=== PATIENT | male | born 1945 | race Caucasian/White ===

== ENCOUNTER 2021-06-12 21:39 | Inpatient (IN) | payer MEDICARE ==
[~2021-06-12] VITALS: Ht 198.1 cm; Wt 91.2 kg
--- NOTE | 2021-06-12 22:04 | PHYS DOC ---
Past Medical History Additional Past Medical Histor: POOR HISTORIAN Past Surgical History: Other Additional Past Surgical Histo: LEFT SHOULDER, POOR HISTORIAN General Adult EDM: Chief Complaint: MECHANICAL FALL HPI: HPI: 75 yr old M PMH seizure disorder and suspected to be on anticoagulants, ÁNGEL (hx from ems) presents to the ED with no active complaints, EMS reports patient slipped and fell in the shower and hit his head. Patient is not sure how 911 was called. Patient is oriented to month and self, very poor historian. History is limited due to patient's recall, suspect medical condition. Review of Systems: Review of Systems: Review of systems limited due to patient's recall, suspect medical condition. Heart Score: C/O Chest Pain: No Risk Factors: Risk Factors: DM, Current or recent (<one month) smoker, HTN, HLP, family history of CAD, obesity. Risk Scores: Score 0 - 3: 2.5% MACE over next 6 weeks - Discharge Home Score 4 - 6: 20.3% MACE over next 6 weeks - Admit for Clinical Observation Score 7 - 10: 72.7% MACE over next 6 weeks - Early Invasive Strategies Physical Exam: PE: Constitutional: well nourished, no acute distress, HENT: Large 5 x 5 cm hematoma over right parietal school just slightly over right upper forehead with laceration, no hemotympanum, moist mucous membranes with no oral bleeding Eyes: PERRLA, EOMI, conjunctiva normal, no discharge, no raccoon eyes or septal hematoma Neck: Normal range of motion, supple, in c-collar Cardiovascular: S1/2 present, regular rhythm Lungs & Thorax: Speaking in full sentences, bilateral equal chest rise, no tachypnea or increased work of breathing, scar over her left anterior shoulder and right shoulder-patient unsure why Abdomen: soft, no tenderness, no hip tenderness Skin: Warm, dry, Back: No midline spinal step-offs or tenderness, no CVA tenderness. [] Extremities: No tenderness, no cyanosis, no lower extremity edema, moving all 4 extremities Neurologic: Alert, [id number] = GCS14, requires ortho assistant with RN to stand Psychologic: Calm mood, normal affect : Yellow urine EKG: EKG: Sinus rhythm at 70 bpm, left axis deviation, QRS 170, QTC 507, peaked T waves V2 through V4, no obvious elevations or ST depressions, no active chest pain Radiology/Procedures: Radiology/Procedures: IMAGING REPORT Signed PATIENT: WALT MORROW ACCOUNT: [id number] : 1945 LOCATION: ER AGE: 75 SEX: M EXAM STATUS: PRE ER ORD. PHYSICIAN: JEAN GONZALEZ DO REASON: fall/confused/trauma PROCEDURE: CT HEAD AND CERVICAL SPINE WO Exam: CT head, maxillofacial and cervical spine INDICATION: Fall, confused trauma TECHNIQUE: Sequential axial images through the head, face and cervical spine were obtained without the administration of IV contrast. Exposure: One or more of the following in the visualized dose reduction techniques were utilized for this examination: 1. Automated exposure control 2. Adjustment of the MA and/or KV according to patient size 3. Use of iterative of reconstructive technique Comparisons: None FINDINGS: Head: No focal parenchymal lesion or hemorrhage is identified. There is no midline shift or sulcal effacement. No acute vascular territory infarction is identified. Hooks-white distinction is preserved. The ventricular system is within normal limits without compression hydrocephalus. The basal cisterns are well maintained. Face: Extra cranial soft tissue scalp contusion/hematoma overlying the right frontoparietal region. The visualized portions of the paranasal sinuses and mastoid air cells are well-pneumatized. No acute fractures. Globes intradural contents are normal. Cervical spine: Straightening of cervical spine which may positional. Vertebral body heights are well-maintained. Fracture to the cervical spine is not identified. Multilevel spondylotic change in cervical spine with degenerative disease greatest at C5-C6. Mild bilateral facet arthropathy is noted in cervical spine. Visualized paraspinal soft tissues are unremarkable. IMPRESSION: 1. No acute intracranial abnormality. 2. Extra cranial soft tissue scalp contusion/hematoma overlying the right frontoparietal region. No underlying osseous abnormality. 3. Negative CT C-spine for acute traumatic injury. Electronically signed by: Casie Avina MD (06/12/2021 11:14 PM) [facility] DICTATED and SIGNED BY: CASIE AVINA MD DATE: 06/12/21 [id number] IMAGING REPORT Signed PATIENT: WALT MORROW ACCOUNT: [id number] : 1945 LOCATION: ER AGE: 75 SEX: M EXAM STATUS: REG ER ORD. PHYSICIAN: JEAN GONZALEZ DO REASON: fall/confused/trauma PROCEDURE: CT CHEST ABD PELVIS W/CONTRAST STUDY: 1. CT chest with contrast 2. CT abdomen/pelvis with contrast 3. CT thoracic spine without contrast 4. CT lumbar spine without contrast INDICATION: Fall. Confusion. COMPARISON: None. TECHNIQUE: Helical CT imaging of the chest, abdomen and pelvis in addition to smaller egqhe-ej-mply images through the thoracic and lumbar spine performed after the intravenous administration of contrast. Coronal and sagittal reformats were obtained. One or more of the following individualized dose reduction techniques were utilized for this examination: 1. Automated exposure control 2. Adjustment of the mA and/or kV according to patient size 3. Use of iterative reconstruction technique. FINDINGS: CT CHEST: No evidence for acute thoracic aorta injury. The visualized great vessels and vertebral arteries are patent. Scattered calcified and noncalcified atheromatous plaque to include coronary artery involvement. Left chest wall dual-lead pacer. The heart is prominent in size. No retrosternal hematoma, pericardial effusion or pneumomediastinum. No significantly enlarged lymph nodes. No pleural effusion or pneumothorax. Scattered groundglass and reticular/branching densities mainly at the subpleural aspect of both lungs. No suspicious nodule based on size that would warrant short-term follow-up. Patent central airways. Unremarkable thyroid and axilla. No large body wall hematoma. Severe arthrosis at the right more so than left shoulders. Loose bodies bilaterally. Joint effusion best seen on the left. Intact sternum. No displaced rib fracture. Thoracic spine findings detailed separately. CT ABDOMEN/PELVIS: Degraded exam due to streak artifact induced by the patient's arms. No acute abnormality of the liver, spleen or kidneys. Gallstones without CT manifestations of acute cholecystitis noting motion. Nondilated biliary tree. Unremarkable pancreas and adrenal glands. Unremarkable bladder. Mild enlargement of the prostate. Scattered colonic diverticuli. Mild volume colonic stool burden. Normal course and caliber of the small bowel. Unremarkable stomach. No evidence for acute injury to the aorta or iliofemoral system. Tortuosity of the aorta without aneurysmal dilatation. Scattered atheromatous plaque. No lymphadenopathy. No free fluid or pneumoperitoneum. No large body wall hernia. Dystrophic mineralization within the right rectus femoris. No acute fracture seen throughout the pelvis. Lumbar spine findings detailed separately. CT THORACIC SPINE: No acute fracture. Alignment in the sagittal plane is within normal limits. Mild broad dextrocurvature. Scattered degenerative changes with a central disc osteophyte protrusion at T8- T9 and a left paracentral disc osteophyte protrusion or extrusion at T10-T11. Uncertain degree of resultant stenosis but estimated at moderate more so at T8- T9. CT LUMBAR SPINE: No acute fracture. No traumatic malalignment. Mild lumbar levocurvature with the apex at L3-L4. Discogenic arthrosis greatest at L3-L4 more so than L4-L5, L5-S1 and L1-L2. Scattered facet degeneration and disc osteophyte complex formation. Limited assessment of the central canal but without definitive severe narrowing. Osseous neural foraminal stenosis greatest on the left at L5-S1. IMPRESSION: CT CHEST: 1. No acute abnormality seen throughout the chest. 2. Enlarged heart with calcific coronary artery disease. 3. Findings centered at the subpleural aspect of the lungs favored mostly on account of atelectasis with possible mild superimposed fibrosis. An atypical infectious process is felt unlikely given history. CT ABDOMEN/PELVIS: 1. No acute abnormality seen below the diaphragm. 2. Chronic findings to include gallstones and colonic diverticulosis. CT THORACIC SPINE: 1. No acute fracture or traumatic malalignment. CT LUMBAR SPINE: 1. No acute fracture or traumatic malalignment. Electronically signed by: BRANDY GOVEA MD (06/12/2021 11:28 PM) [facility] DICTATED and SIGNED BY: BRANDY GOVEA MD DATE: 06/12/21 [id number] 0 Indication: Right parietal/occipital laceration approximately 3 cm that extends just to the hairline, underlying 5 cm hematoma has significantly drained Procedure: The patient was placed in the appropriate position. The area was then irrigated. The laceration was closed with 3 shantel. The wound area was then dressed with triple tobacco ointment and sterile pressure dressings. Total repaired wound length: 3 cm. The patient tolerated the procedure . Complications: Mild bleeding at 1 staple incision -pressure dressings applied Course & Med Decision Making: Course & Med Decision Making Pertinent Labs and Imaging studies reviewed. (See chart for details) Concern for traumatic blunt head injury, differential includes syncope versus seizure vs dementia, patient with no recall of event. Scalp laceration repaired with shantel. Labs elevated troponin, no prior for comparison. Patient patient is still confused-has no incontinence and is frequently urinating in the ED stating " drink a lot of iced tea. Will admit for further medical management. Patient stable at time of admission and agrees with this plan. Dragon Disclaimer: Dragon Disclaimer: This electronic medical record was generated, in whole or in part, using a voice recognition dictation system. Departure Departure Impression: Primary Impression: Altered mental status Additional Impressions: Traumatic hematoma of scalp Need for Tdap vaccination NSTEMI (non-ST elevated myocardial infarction) Disposition: 09 ADMITTED INPATIENT Admitting Physician: KACY (Dr. Crews) Condition: GUARDED JEAN GONZALEZ DO Jun 12, 2021 22:04
[2021-06-12 22:12] LABS: BASO % 1 % (0-3); EOS % 0 % (0-3); HEMATOCRIT 42.9 % (39.0-53.0); HEMOGLOBIN 14.6 g/dL (13.0-17.5); LYMPH # 0.8 x10^3/uL (1.0-4.8); LYMPH % 11 % (24-48); MEAN CORPUSCULAR HEMOGLOBIN 30 pg (25-35); MEAN CORPUSCULAR HGB CONC 34 g/dL (31-37); MEAN CORPUSCULAR VOLUME 88 fL (79-100); MONO # 0.5 x10^3/uL (0.0-1.1); MONO % 6 % (0-9); NEUT # 6.1 x10^3/uL (1.8-7.7); NEUT % 82 % (31-73); PLATELET COUNT 89 x10^3/uL (140-400); RED BLOOD COUNT 4.89 x10^6/uL (4.30-5.70); RED CELL DISTRIBUTION WIDTH 13.8 % (11.5-14.5); WHITE BLOOD COUNT 7.4 x10^3/uL (4.0-11.0)
[2021-06-12 22:22] LABS: PROTHROMBIN TIME PATIENT 14.8 SEC (11.7-14.0)
[2021-06-12 22:28] LABS: CALCIUM 8.2 mg/dL (8.5-10.1); CREATININE 1.2 mg/dL (0.7-1.3); GFR 59.3; POTASSIUM 3.8 mmol/L (3.5-5.1)
[2021-06-12 22:35] LABS: ALBUMIN 3.6 g/dL (3.4-5.0); ALBUMIN/GLOBULIN RATIO 1.2 (1.0-1.7); MAGNESIUM 2.1 mg/dL (1.8-2.4); TOTAL BILIRUBIN 0.4 mg/dL (0.2-1.0); TOTAL PROTEIN 6.5 g/dL (6.4-8.2)
[2021-06-12] MEDS ORDERED: diphenhydrAMINE 50 MG/ML VIAL IVP ONE (23:00)
[2021-06-12] MEDS ORDERED: CONTRAST GIVEN. MC PRN (23:00)
[2021-06-12] MEDS ORDERED: ACETAMINOPHEN 500 MG TABLET PO ONE (23:00)
[2021-06-12] MEDS ORDERED: DEXAMETHASONE SOD PHOS 20 MG/5 ML VIAL. IV ONE (23:00)
--- NOTE | 2021-06-12 23:17 | RAD ---
Exam: CT head, maxillofacial and cervical spine INDICATION: Fall, confused trauma TECHNIQUE: Sequential axial images through the head, face and cervical spine were obtained without th e administration of IV contrast. Exposure: One or more of the following in the visualized dose reduction techniques were utilized for this examination: 1. Automated exposure control 2. Adjustment of the MA and/or KV according to patient size 3. Use of iterative of reconstructive technique Comparisons: None FINDINGS: Head: No focal parenchymal lesion or hemorrhage is identified. There is no midline shift or sulcal effaceme nt. No acute vascular territory infarction is identified. Hooks-white distinction is preserved. The ventricular system is within normal limits without compression hydrocephalus. The basal cisterns are well maintained. Face: Extra cranial soft tissue scalp contusion/hematoma overlying the right frontoparietal region. The vis ualized portions of the paranasal sinuses and mastoid air cells are well-pneumatized. No acute fractu res. Globes intradural contents are normal. Cervical spine: Straightening of cervical spine which may positional. Vertebral body heights are well-maintained. Fracture to the cervical spine is not identified. Multilevel spondylotic change in cervical spine with degenerative disease greatest at C5-C6. Mild ruth ateral facet arthropathy is noted in cervical spine. Visualized paraspinal soft tissues are unremarkable. IMPRESSION: 1. No acute intracranial abnormality. 2. Extra cranial soft tissue scalp contusion/hematoma overlying the right frontoparietal region. No underlying osseous abnormality. 3. Negative CT C-spine for acute traumatic injury. Electronically signed by: Casie Nicole MD (06/12/2021 11:14 PM) [facility]
[2021-06-12] MEDS ORDERED: DIPH,PERTUSS(ACELL),TET VAC/PF 0.5 ML SYRINGE. VAX IM ONE (23:30)
[2021-06-12] MEDS ORDERED: IOHEXOL 300 MG/ML 100ML VIAL. IV ONE (23:30)
--- NOTE | 2021-06-12 23:30 | RAD ---
STUDY: 1. CT chest with contrast 2. CT abdomen/pelvis with contrast 3. CT thoracic spine without contrast 4. CT lumbar spine without contrast INDICATION: Fall. Confusion. COMPARISON: None. TECHNIQUE: Helical CT imaging of the chest, abdomen and pelvis in addition to smaller myeym-fb-rehi i mages through the thoracic and lumbar spine performed after the intravenous administration of contras t. Coronal and sagittal reformats were obtained. One or more of the following individualized dose reduction techniques were utilized for this examinat ion: 1. Automated exposure control 2. Adjustment of the mA and/or kV according to patient size 3. Use of iterative reconstruction technique. FINDINGS: CT CHEST: No evidence for acute thoracic aorta injury. The visualized great vessels and vertebral arteries are patent. Scattered calcified and noncalcified atheromatous plaque to include coronary artery involveme nt. Left chest wall dual-lead pacer. The heart is prominent in size. No retrosternal hematoma, pericardial effusion or pneumomediastinum. No significantly enlarged lymph nodes. No pleural effusion or pneumothorax. Scattered groundglass and reticular/branching densities mainly a t the subpleural aspect of both lungs. No suspicious nodule based on size that would warrant short-te rm follow-up. Patent central airways. Unremarkable thyroid and axilla. No large body wall hematoma. Severe arthrosis at the right more so t boo left shoulders. Loose bodies bilaterally. Joint effusion best seen on the left. Intact sternum. N o displaced rib fracture. Thoracic spine findings detailed separately. CT ABDOMEN/PELVIS: Degraded exam due to streak artifact induced by the patient's arms. No acute abnormality of the liver, spleen or kidneys. Gallstones without CT manifestations of acute c holecystitis noting motion. Nondilated biliary tree. Unremarkable pancreas and adrenal glands. Unrema rkable bladder. Mild enlargement of the prostate. Scattered colonic diverticuli. Mild volume colonic stool burden. Normal course and caliber of the sma ll bowel. Unremarkable stomach. No evidence for acute injury to the aorta or iliofemoral system. Tortuosity of the aorta without aneu rysmal dilatation. Scattered atheromatous plaque. No lymphadenopathy. No free fluid or pneumoperitone um. No large body wall hernia. Dystrophic mineralization within the right rectus femoris. No acute fr acture seen throughout the pelvis. Lumbar spine findings detailed separately. CT THORACIC SPINE: No acute fracture. Alignment in the sagittal plane is within normal limits. Mild broad dextrocurvatur e. Scattered degenerative changes with a central disc osteophyte protrusion at T8-T9 and a left paracent ral disc osteophyte protrusion or extrusion at T10-T11. Uncertain degree of resultant stenosis but es timated at moderate more so at T8-T9. CT LUMBAR SPINE: No acute fracture. No traumatic malalignment. Mild lumbar levocurvature with the apex at L3-L4. Discogenic arthrosis greatest at L3-L4 more so than L4-L5, L5-S1 and L1-L2. Scattered facet degeneration and disc osteophyte complex formation. Limited assessment of the central canal but without definitive severe narrowing. Osseous neural foraminal matthew nosis greatest on the left at L5-S1. IMPRESSION: CT CHEST: 1. No acute abnormality seen throughout the chest. 2. Enlarged heart with calcific coronary artery disease. 3. Findings centered at the subpleural aspect of the lungs favored mostly on account of atelectasis with possible mild superimposed fibrosis. An atypical infectious process is felt unlikely given histo ry. CT ABDOMEN/PELVIS: 1. No acute abnormality seen below the diaphragm. 2. Chronic findings to include gallstones and colonic diverticulosis. CT THORACIC SPINE: 1. No acute fracture or traumatic malalignment. CT LUMBAR SPINE: 1. No acute fracture or traumatic malalignment. Electronically signed by: BRANDY GOVEA MD (06/12/2021 11:28 PM) [facility]
[2021-06-13] VITALS (7 sets, daily range): BP systolic 118–174; BP diastolic 71–92
[2021-06-13 00:09] LABS: BILIRUBIN,URINE NEGATIVE (NEG); CLARITY,URINE CLEAR; COLOR,URINE YELLOW; NITRITE,URINE NEGATIVE (NEG); PROTEIN,URINE NEGATIVE (NEG-TRACE); UROBILINOGEN,URINE 0.2 mg/dL (0.2 mg/dL)
[2021-06-13 00:15] LABS: BACTERIA,URINE 0 /HPF (0-FEW); HYALINE CASTS, URINE OCCASIONAL /HPF; RBC,URINE 0 /HPF (0-2); SPERM,URINE PRESENT /HPF; WBC,URINE OCC /HPF (0-4)
[2021-06-13 00:16] LABS: BARBITURATES NEG (NEG); BENZODIAZEPINES NEG (NEG); CANNABINOIDS NEG (NEG); COCAINE NEG (NEG); METHADONE NEG (NEG); OPIATES NEG (NEG); PHENCYCLIDINE NEG (NEG)
[2021-06-13 00:23] LABS: AMPHETAMINE/METHAMPHETAMINE NEG (NEG)
[2021-06-13] MEDS ORDERED: NEOMY/BACITR/POLYMYXIN OINT PACKET. TP ONE (01:00)
[2021-06-13] MEDS ORDERED: HYDROmorphone 2 MG/ML VIAL IVP ONE (01:00)
--- NOTE | 2021-06-13 02:43 | EKG ---
[facility] [address] [place] [address] Test Date: 2021-06-12 Test Time: 21:51:46 Pat Name: WALT MORROW Department: Room: Gender: M Print [employer] Assistant: : 1945 Requested By: JEAN GONZALEZ Order Number: [id number] Reading MD: Measurements Intervals [place] Rate: 70 P: 0 MD: 0 QRS: -62 QRSD: 170 T: 82 QT: 466 QTc: 507 Interpretive Statements SINUS RHYTHM PROLONGED MD INTERVAL LEFT ATRIAL ABNORMALITY ABNORMAL LEFT AXIS DEVIATION NON SPECIFIC INTRAVENTRICULAR BLOCK QRS(T) CONTOUR ABNORMALITY CONSISTENT WITH ANTEROLATERAL INFARCT PROBABLY OLD CONSIDER INFERIOR MYOCARDIAL DAMAGE ABNORMAL ECG RI6.02 No previous ECG available for comparison
--- NOTE | 2021-06-13 04:00 | NUR ---
The patient, WALT MORROW, 75 y/o, M admitted by KITA REIS MD, was given written information regarding hospital policies, unit procedures and contact persons. Valuables were checked and patient has none. Patient from [facility]. Patient states he has no family only Kay Cardoza from [place] to make decisions.
[2021-06-13] MEDS: levETIRAcetam 500 MG in IV DEXTROSE 5% 100ML 100 ML IV SCH ×2 (09:52→20:42)
--- NOTE | 2021-06-13 12:00 | HP ---
ADMIT DATE: 06/13/2021 CHIEF COMPLAINT: Fall. HISTORY OF PRESENT ILLNESS: The patient is a pleasant elderly male who fell. He apparently slipped and fell and hit his head. 911 was called. He does have a history of a seizure disorder as well. While in the ER, he was also noted to have a bump in his troponin to 0.09. I discussed the case with the ER physician. We are admitting the patient with consultation to Neurology and Cardiology. PAST MEDICAL HISTORY: Seizure disorder. ALLERGIES: None. FAMILY HISTORY: Diabetes. SOCIAL HISTORY: He does not drink, smoke or take drugs. MEDICATIONS: Reviewed, please refer to the MRAD. REVIEW OF SYSTEMS: Unable to obtain. The patient is obtunded. PHYSICAL EXAMINATION: VITALS: Within normal limits and are stable. GENERAL: He is obtunded, will not wake up. HEENT: He has clean, dry and intact dressing on his head. Please see the pictures. MUSCULOSKELETAL: Well developed, well nourished, good range of motion. ENDOCRINE: No thyromegaly was palpated. LYMPHATICS: No cervical chain or axillary nodes were noted. HEMATOPOIETIC: No bruising. NECK: Supple, no JVD, no thyromegaly was noted. LUNGS: Clear to auscultation in all lung strickland without rhonchi or wheezing. HEART: RRR, S1, S2 present. Peripheral pulses intact, no obvious murmurs were noted. ABDOMEN: Soft, nontender. Positive bowel sounds no organomegaly, normal bowel sounds. EXTREMITIES: Without any cyanosis, clubbing, or edema. Pedal pulses intact, Homans sign is negative. NEUROLOGIC: He is obtunded, will not wake up. PSYCHIATRIC: He is obtunded, will not wake up. SKIN: No ulcerations or rashes, good skin turgor, no jaundice. VASCULAR: Good capillary refill, neurovascular bundle appears to be intact. LABORATORY DATA: Electrolytes are normal. Glucose is little high at 116. Troponin 0.097. BNP 2251. Drug screen negative. Urinalysis negative. INR is 1.2. White count 7, hemoglobin 14, platelets 89. CT of the head showed no acute disease, but did show a soft tissue hematoma. ASSESSMENT AND PLAN: Fall with a closed head trauma, possible seizure, elevated troponin, acute on chronic systolic and diastolic heart failure. The patient will be admitted. We will consult Cardiology and Neurology. Seizure precautions. Wound care. Home medications. Deep venous thrombosis prophylaxis. Full code. Cardiac monitoring, serial enzymes, serial EKGs. radha Dotson. Prognosis guarded. MARIANNA/CRISTAL DR: Brandon TID: [id number]
--- NOTE | 2021-06-13 13:19 | NUR ---
SS following for discharge planning. SS reviewed pt chart and discussed with pt RN. Pt is from home and is currently on room air. Neurology consulted. SS will continue to follow for discharge planning.
--- NOTE | 2021-06-13 13:30 | PDOC2 ---
NEUROLOGY CONSULT Date of Service DOS: DATE: 06/13/21 TIME: 13:16 History of Present Illness History of Present Illness The patient is a 75-year-old right-handed male who slipped and fell in his shower. He told emergency room personnel that he did not know how he was brought to the hospital. He was found to have a scalp hematoma and elevated troponin. At about 9 AM this morning he had a generalized convulsion. He does have a history of epilepsy. He is supposed to be taking lacosamide 100 mg twice daily and levetiracetam 500 mg twice daily. He follows at the [facility] as well as with Dr. Ruiz. Patient's brother told the nurse that he sometimes is noncompliant but he had gone several months since his last seizure, also related to noncompliance. I was able to find records of a October 2019 admission to [facility] for breakthrough seizure. In general he has about a day long postictal state. Past Medical History Pulmonary: Other (Sleep apnea) CENTRAL NERVOUS SYSTEM: Seizure Renal/: Other (Urinary retention) Past Surgical History Past Surgical History: Appendectomy, Other (Left shoulder, right elbow) Family History Family History: No pertinent hx Social History Social History Lives alone, no alcohol or tobacco Current Medications Current Medications Current Medications Dexamethasone Sodium Phosphate (Decadron) 10 mg 1X ONCE IV Last administered on 06/12/21at 23:52; Start 06/12/21 at 23:00; Stop 06/12/21 at 23:01; Status DC Diphenhydramine HCl (Benadryl) 25 mg 1X ONCE IVP Last administered on 06/12/21at 23:52; Start 06/12/21 at 23:00; Stop 06/12/21 at 23:01; Status DC Acetaminophen (Tylenol) 1,000 mg 1X ONCE PO Last administered on 06/12/21at 23:52; Start 06/12/21 at 23:00; Stop 06/12/21 at 23:01; Status DC Iohexol (Omnipaque 300 Mg/ml) 60 ml 1X ONCE IV Last administered on 06/12/21at 23:21; Start 06/12/21 at 23:30; Stop 06/12/21 at 23:31; Status DC Info (CONTRAST GIVEN -- Rx MONITORING) 1 each PRN DAILY PRN MC SEE COMMENTS; Start 06/12/21 at 23:00; Stop 06/14/21 at 22:59 Diphtheria/ Tetanus/Acell Pertussis (ADACEL TDap SYRINGE) 0.5 ml ONCE ONCE VAX IM Last administered on 06/12/21at 23:51; Start 06/12/21 at 23:30; Stop 06/12/21 at 23:31; Status DC Neomycin/ Polymyxin/ Bacitracin (Triple Antibiotic Ointment) 1 pkt 1X ONCE TP ; Start 06/13/21 at 01:00; Stop 06/13/21 at 01:01; Status DC Hydromorphone HCl (Dilaudid) 1 mg 1X ONCE IVP Last administered on 06/13/21at 01:00; Start 06/13/21 at 01:00; Stop 06/13/21 at 01:01; Status DC Lorazepam (Ativan Inj) 2 mg 1X PRN PRN IVP ANXIETY / AGITATION Last administered on 06/13/21at 12:11; Start 06/13/21 at 09:00 Levetiracetam 500 mg/Dextrose 105 ml @ 420 mls/hr Q12HR IV Last administered on 06/13/21at 09:52; Start 06/13/21 at 09:12 Lorazepam (Ativan Inj) 2 mg 1X ONCE IVP ; Start 06/13/21 at 12:30; Stop 06/13/21 at 12:31; Status DC Lacosamide 100 mg/ Dextrose 60 ml @ 120 mls/hr BID IV ; Start 06/13/21 at 14:00 Allergies Allergies: Coded Allergies: No Known Drug Allergies (Unverified , 06/12/21) ROS Review of System Unable to obtain Physical Exam Physical Examination General: Well-developed, well-nourished white male in no acute distress HEENT: Normocephalic right frontoparietal region scalp hematoma. Temporal arteriespulsatile and nontender. Neck: Supple without bruit, no meningismus Musculoskeletal: Stability:see neurologic. Gait exam:see neurologic. Tone:see neurologic.Strength:see neurologic. Neurological: Mental Status:orientation, memory, attention span/concentration, language, fund of knowledge: Nurse just gave him some Ativan for agitation, but he was alert and answering questions following the seizure at 9 AM. Cranial Nerves:Pupils equal and reactive to light, extraocular movements areintactThere is no facial asymmetry. All other cranial related problems are negative except as mentioned before.Reflexes:2+ and symmetric with flexor plantar responses. Motor:Withdraws all four extremities to minimal pain. Coordination and gait:not tested. Sensory:Not tested. Vitals VITALS Vital Signs Date Time Temp Pulse Resp B/P (MAP) Pulse Ox O2 Delivery O2 Flow Rate FiO2 06/13/21 08:00 Room Air 06/13/21 07:25 97.4 70 20 143/90 (107) 96 97.4 Labs Labs Laboratory Tests Test 06/12/21 22:00 06/12/21 23:58 White Blood Count 7.4 x10^3/uL (4.0-11.0) Red Blood Count 4.89 x10^6/uL (4.30-5.70) Hemoglobin 14.6 g/dL (13.0-17.5) Hematocrit 42.9 % (39.0-53.0) Mean Corpuscular Volume 88 fL (79-100) Mean Corpuscular Hemoglobin 30 pg (25-35) Mean Corpuscular Hemoglobin Concent 34 g/dL (31-37) Red Cell Distribution Width 13.8 % (11.5-14.5) Platelet Count 89 x10^3/uL (140-400) Neutrophils (%) (Auto) 82 % (31-73) Lymphocytes (%) (Auto) 11 % (24-48) Monocytes (%) (Auto) 6 % (0-9) Eosinophils (%) (Auto) 0 % (0-3) Basophils (%) (Auto) 1 % (0-3) Neutrophils # (Auto) 6.1 x10^3/uL (1.8-7.7) Lymphocytes # (Auto) 0.8 x10^3/uL (1.0-4.8) Monocytes # (Auto) 0.5 x10^3/uL (0.0-1.1) Eosinophils # (Auto) 0.0 x10^3/uL (0.0-0.7) Basophils # (Auto) 0.0 x10^3/uL (0.0-0.2) Prothrombin Time 14.8 SEC (11.7-14.0) Prothromb Time International Ratio 1.2 (0.8-1.1) Activated Partial Thromboplast Time 33 SEC (24-38) Sodium Level 139 mmol/L (136-145) Potassium Level 3.8 mmol/L (3.5-5.1) Chloride Level 102 mmol/L (98-107) Carbon Dioxide Level 26 mmol/L (21-32) Anion Gap 11 (6-14) Blood Urea Nitrogen 24 mg/dL (8-26) Creatinine 1.2 mg/dL (0.7-1.3) Estimated GFR (Cockcroft-Gault) 59.3 BUN/Creatinine Ratio 20 (6-20) Glucose Level 116 mg/dL (70-99) Calcium Level 8.2 mg/dL (8.5-10.1) Magnesium Level 2.1 mg/dL (1.8-2.4) Total Bilirubin 0.4 mg/dL (0.2-1.0) Aspartate Amino Transf (AST/SGOT) 42 U/L (15-37) Alanine Aminotransferase (ALT/SGPT) 40 U/L (16-63) Alkaline Phosphatase 90 U/L (46-116) Creatine Kinase 582 U/L (39-308) Troponin I Quantitative 0.097 ng/mL (0.000-0.055) MB-Hfl-O-Type Natriuretic Peptide 2251 pg/mL (0-124) Total Protein 6.5 g/dL (6.4-8.2) Albumin 3.6 g/dL (3.4-5.0) Albumin/Globulin Ratio 1.2 (1.0-1.7) Urine Collection Type Unknown Urine Color Yellow Urine Clarity Clear Urine pH 7.0 (<5.0-8.0) Urine Specific [place] 1.020 (1.000-1.030) Urine Protein Negative mg/dL (NEG-TRACE) Urine Glucose (UA) Negative mg/dL (NEG) Urine Ketones (Stick) Negative mg/dL (NEG) Urine Blood Small (NEG) Urine Nitrite Negative (NEG) Urine Bilirubin Negative (NEG) Urine Urobilinogen Dipstick 0.2 mg/dL (0.2 mg/dL) Urine Leukocyte Esterase Negative (NEG) Urine RBC 0 /HPF (0-2) Urine WBC Occ /HPF (0-4) Urine Squamous Epithelial Cells Occ /LPF Urine Bacteria 0 /HPF (0-FEW) Urine Hyaline Casts Occasional /HPF Urine Mucus Slight /LPF Urine Sperm Present /HPF Urine Opiates Screen Neg (NEG) Urine Methadone Screen Neg (NEG) Urine Barbiturates Neg (NEG) Urine Phencyclidine Screen Neg (NEG) Urine Amphetamine/Methamphetamine Neg (NEG) Urine Benzodiazepines Screen Neg (NEG) Urine Cocaine Screen Neg (NEG) Urine Cannabinoids Screen Neg (NEG) Urine Ethyl Alcohol Neg (NEG) Laboratory Tests Test 06/12/21 22:00 06/12/21 23:58 White Blood Count 7.4 x10^3/uL (4.0-11.0) Red Blood Count 4.89 x10^6/uL (4.30-5.70) Hemoglobin 14.6 g/dL (13.0-17.5) Hematocrit 42.9 % (39.0-53.0) Mean Corpuscular Volume 88 fL (79-100) Mean Corpuscular Hemoglobin 30 pg (25-35) Mean Corpuscular Hemoglobin Concent 34 g/dL (31-37) Red Cell Distribution Width 13.8 % (11.5-14.5) Platelet Count 89 x10^3/uL (140-400) Neutrophils (%) (Auto) 82 % (31-73) Lymphocytes (%) (Auto) 11 % (24-48) Monocytes (%) (Auto) 6 % (0-9) Eosinophils (%) (Auto) 0 % (0-3) Basophils (%) (Auto) 1 % (0-3) Neutrophils # (Auto) 6.1 x10^3/uL (1.8-7.7) Lymphocytes # (Auto) 0.8 x10^3/uL (1.0-4.8) Monocytes # (Auto) 0.5 x10^3/uL (0.0-1.1) Eosinophils # (Auto) 0.0 x10^3/uL (0.0-0.7) Basophils # (Auto) 0.0 x10^3/uL (0.0-0.2) Prothrombin Time 14.8 SEC (11.7-14.0) Prothromb Time International Ratio 1.2 (0.8-1.1) Activated Partial Thromboplast Time 33 SEC (24-38) Sodium Level 139 mmol/L (136-145) Potassium Level 3.8 mmol/L (3.5-5.1) Chloride Level 102 mmol/L (98-107) Carbon Dioxide Level 26 mmol/L (21-32) Anion Gap 11 (6-14) Blood Urea Nitrogen 24 mg/dL (8-26) Creatinine 1.2 mg/dL (0.7-1.3) Estimated GFR (Cockcroft-Gault) 59.3 BUN/Creatinine Ratio 20 (6-20) Glucose Level 116 mg/dL (70-99) Calcium Level 8.2 mg/dL (8.5-10.1) Magnesium Level 2.1 mg/dL (1.8-2.4) Total Bilirubin 0.4 mg/dL (0.2-1.0) Aspartate Amino Transf (AST/SGOT) 42 U/L (15-37) Alanine Aminotransferase (ALT/SGPT) 40 U/L (16-63) Alkaline Phosphatase 90 U/L (46-116) Creatine Kinase 582 U/L (39-308) Troponin I Quantitative 0.097 ng/mL (0.000-0.055) GH-Sbw-B-Type Natriuretic Peptide 2251 pg/mL (0-124) Total Protein 6.5 g/dL (6.4-8.2) Albumin 3.6 g/dL (3.4-5.0) Albumin/Globulin Ratio 1.2 (1.0-1.7) Urine Collection Type Unknown Urine Color Yellow Urine Clarity Clear Urine pH 7.0 (<5.0-8.0) Urine Specific [place] 1.020 (1.000-1.030) Urine Protein Negative mg/dL (NEG-TRACE) Urine Glucose (UA) Negative mg/dL (NEG) Urine Ketones (Stick) Negative mg/dL (NEG) Urine Blood Small (NEG) Urine Nitrite Negative (NEG) Urine Bilirubin Negative (NEG) Urine Urobilinogen Dipstick 0.2 mg/dL (0.2 mg/dL) Urine Leukocyte Esterase Negative (NEG) Urine RBC 0 /HPF (0-2) Urine WBC Occ /HPF (0-4) Urine Squamous Epithelial Cells Occ /LPF Urine Bacteria 0 /HPF (0-FEW) Urine Hyaline Casts Occasional /HPF Urine Mucus Slight /LPF Urine Sperm Present /HPF Urine Opiates Screen Neg (NEG) Urine Methadone Screen Neg (NEG) Urine Barbiturates Neg (NEG) Urine Phencyclidine Screen Neg (NEG) Urine Amphetamine/Methamphetamine Neg (NEG) Urine Benzodiazepines Screen Neg (NEG) Urine Cocaine Screen Neg (NEG) Urine Cannabinoids Screen Neg (NEG) Urine Ethyl Alcohol Neg (NEG) Images Images CT HEAD AND CERVICAL SPINE WO Exam: CT head, maxillofacial and cervical spine INDICATION: Fall, confused trauma TECHNIQUE: Sequential axial images through the head, face and cervical spine were obtained without the administration of IV contrast. Exposure: One or more of the following in the visualized dose reduction techniques were utilized for this examination: 1. Automated exposure control 2. Adjustment of the MA and/or KV according to patient size 3. Use of iterative of reconstructive technique Comparisons: None FINDINGS: Head: No focal parenchymal lesion or hemorrhage is identified. There is no midline shift or sulcal effacement. No acute vascular territory infarction is identified. Hooks-white distinction is preserved. The ventricular system is within normal limits without compression hydrocephalus. The basal cisterns are well maintained. Face: Extra cranial soft tissue scalp contusion/hematoma overlying the right frontoparietal region. The visualized portions of the paranasal sinuses and mastoid air cells are well-pneumatized. No acute fractures. Globes intradural contents are normal. Cervical spine: Straightening of cervical spine which may positional. Vertebral body heights are well-maintained. Fracture to the cervical spine is not identified. Multilevel spondylotic change in cervical spine with degenerative disease greatest at C5-C6. Mild bilateral facet arthropathy is noted in cervical spine. Visualized paraspinal soft tissues are unremarkable. IMPRESSION: 1. No acute intracranial abnormality. 2. Extra cranial soft tissue scalp contusion/hematoma overlying the right frontoparietal region. No underlying osseous abnormality. 3. Negative CT C-spine for acute traumatic injury. 1. CT chest with contrast 2. CT abdomen/pelvis with contrast 3. CT thoracic spine without contrast 4. CT lumbar spine without contrast INDICATION: Fall. Confusion. COMPARISON: None. TECHNIQUE: Helical CT imaging of the chest, abdomen and pelvis in addition to smaller [id number] images through the thoracic and lumbar spine performed after the intravenous administration of contrast. Coronal and sagittal reformats were obtained. One or more of the following individualized dose reduction techniques were utilized for this examination: 1. Automated exposure control 2. Adjustment of the mA and/or kV according to patient size 3. Use of iterative reconstruction technique. FINDINGS: CT CHEST: No evidence for acute thoracic aorta injury. The visualized great vessels and vertebral arteries are patent. Scattered calcified and noncalcified atheromatous plaque to include coronary artery involvement. Left chest wall dual-lead pacer. The heart is prominent in size. No retrosternal hematoma, pericardial effusion or pneumomediastinum. No significantly enlarged lymph nodes. No pleural effusion or pneumothorax. Scattered groundglass and reticular/branching densities mainly at the subpleural aspect of both lungs. No suspicious nodule based on size that would warrant short-term follow-up. Patent central airways. Unremarkable thyroid and axilla. No large body wall hematoma. Severe arthrosis at the right more so than left shoulders. Loose bodies bilaterally. Joint effusion best seen on the left. Intact sternum. No displaced rib fracture. Thoracic spine findings detailed separately. CT ABDOMEN/PELVIS: Degraded exam due to streak artifact induced by the patient's arms. No acute abnormality of the liver, spleen or kidneys. Gallstones without CT manifestations of acute cholecystitis noting motion. Nondilated biliary tree. Unremarkable pancreas and adrenal glands. Unremarkable bladder. Mild enlargement of the prostate. Scattered colonic diverticuli. Mild volume colonic stool burden. Normal course and caliber of the small bowel. Unremarkable stomach. No evidence for acute injury to the aorta or iliofemoral system. Tortuosity of the aorta without aneurysmal dilatation. Scattered atheromatous plaque. No lymphadenopathy. No free fluid or pneumoperitoneum. No large body wall hernia. Dystrophic mineralization within the right rectus femoris. No acute fracture seen throughout the pelvis. Lumbar spine findings detailed separately. CT THORACIC SPINE: No acute fracture. Alignment in the sagittal plane is within normal limits. Mild broad dextrocurvature. Scattered degenerative changes with a central disc osteophyte protrusion at T8- T9 and a left paracentral disc osteophyte protrusion or extrusion at T10-T11. Uncertain degree of resultant stenosis but estimated at moderate more so at T8- T9. CT LUMBAR SPINE: No acute fracture. No traumatic malalignment. Mild lumbar levocurvature with the apex at L3-L4. Discogenic arthrosis greatest at L3-L4 more so than L4-L5, L5-S1 and L1-L2. Scattered facet degeneration and disc osteophyte complex formation. Limited assessment of the central canal but without definitive severe narrowing. Osseous neural foraminal stenosis greatest on the left at L5-S1. IMPRESSION: CT CHEST: 1. No acute abnormality seen throughout the chest. 2. Enlarged heart with calcific coronary artery disease. 3. Findings centered at the subpleural aspect of the lungs favored mostly on account of atelectasis with possible mild superimposed fibrosis. An atypical infectious process is felt unlikely given history. CT ABDOMEN/PELVIS: 1. No acute abnormality seen below the diaphragm. 2. Chronic findings to include gallstones and colonic diverticulosis. CT THORACIC SPINE: 1. No acute fracture or traumatic malalignment. CT LUMBAR SPINE: 1. No acute fracture or traumatic malalignment. Assessment/Plan Assessment/Plan Impression: Seizure this morning, also may be one yesterday afternoon at home, breakthrough seizures, history of noncompliance off and on. No evidence of acute intracranial abnormality on the imaging studies or exam. He usually follows at [facility] as well as with Dr. Ruiz. He usually takes about a day to wake up from a seizure, but he was fairly lucid for the nurse until she had to sedate him Recommendations: I resumed his levetiracetam and lacosamide Observation Hold on repeat EEG Thank you for letting me help with the patient's care. JOSE G HARLEY MD Jun 13, 2021 13:30
[2021-06-13] MEDS: LACOSAMIDE 100 MG in IV DEXTROSE 5% 50 ML IV SCH ×2 (15:01→21:22)
[2021-06-13] MEDS ORDERED: LEVO50TA PO (18:26)
[2021-06-13] MEDS ORDERED: MULT-766 PO (18:26)
[2021-06-13] MEDS ORDERED: METO100T7 PO (18:26)
[2021-06-13] MEDS ORDERED: DOCU-109 PO (18:26)
[2021-06-13] MEDS ORDERED: LEVE500T56 PO (18:26)
[2021-06-13] MEDS ORDERED: ATOR40TA59 PO (18:26)
[2021-06-13] MEDS ORDERED: APIX5TAB PO (18:26)
[2021-06-13] MEDS ORDERED: DOCO1CAP2 PO (18:26)
[2021-06-14 03:00] VITALS: BP 175/98
[2021-06-14 06:59] VITALS: BP 176/90
[2021-06-14] MEDS: levETIRAcetam 500 MG TABLET PO SCH ×2 (09:35→20:40)
[2021-06-14] MEDS: LACOSAMIDE 50 MG TABLET PO SCH ×2 (09:36→20:40)
--- NOTE | 2021-06-14 10:39 | PDOC ---
PROGRESS NOTES Date of Service DATE: 06/14/21 TIME: 10:37 Assessment Problems Medical Problems: (1) Altered mental status Status: Acute (2) Need for Tdap vaccination Status: Acute (3) NSTEMI (non-ST elevated myocardial infarction) Status: Acute (4) Traumatic hematoma of scalp Status: Acute Epilepsy with prolonged postictal state, now bright and alert Plan I switched his levetiracetam and lacosamide to by mouth Rehabilitation screening Discharge later today if stable Follow-up with his neurologist, Dr. Ruiz By the time I saw him he had already received his levetiracetam, I did not see the point of checking levels Subjective No complaints, does not think he missed any of his medications, wants to go home Objective Vital Signs Date Time Temp Pulse Resp B/P (MAP) Pulse Ox O2 Delivery O2 Flow Rate FiO2 06/14/21 06:59 97.7 70 18 176/90 (118) 98 Room Air 97.7 Intake and Output 06/14/21 07:00 Intake Total 630 ml Output Total 1500 ml Balance -870 ml Intake Oral 530 ml IV Total 100 ml Output Urine Total 1500 ml # Voids 4 PHYSICAL EXAM Alert. Oriented to time, place and person. PERRL. EOMI. CN: no focal findings. Muscle tone: normal. Muscle strength: 4/5 DTR: 1+ Plantar reflex: flexor Gait: not examined in bed. Sensory exam: no abnormal findings. No cerebellar signs elicited. Review of Relevant I have reviewed the following items rashad (where applicable) has been applied. Labs Laboratory Tests Test 06/12/21 22:00 06/12/21 23:58 White Blood Count 7.4 x10^3/uL (4.0-11.0) Red Blood Count 4.89 x10^6/uL (4.30-5.70) Hemoglobin 14.6 g/dL (13.0-17.5) Hematocrit 42.9 % (39.0-53.0) Mean Corpuscular Volume 88 fL (79-100) Mean Corpuscular Hemoglobin 30 pg (25-35) Mean Corpuscular Hemoglobin Concent 34 g/dL (31-37) Red Cell Distribution Width 13.8 % (11.5-14.5) Platelet Count 89 x10^3/uL (140-400) Neutrophils (%) (Auto) 82 % (31-73) Lymphocytes (%) (Auto) 11 % (24-48) Monocytes (%) (Auto) 6 % (0-9) Eosinophils (%) (Auto) 0 % (0-3) Basophils (%) (Auto) 1 % (0-3) Neutrophils # (Auto) 6.1 x10^3/uL (1.8-7.7) Lymphocytes # (Auto) 0.8 x10^3/uL (1.0-4.8) Monocytes # (Auto) 0.5 x10^3/uL (0.0-1.1) Eosinophils # (Auto) 0.0 x10^3/uL (0.0-0.7) Basophils # (Auto) 0.0 x10^3/uL (0.0-0.2) Prothrombin Time 14.8 SEC (11.7-14.0) Prothromb Time International Ratio 1.2 (0.8-1.1) Activated Partial Thromboplast Time 33 SEC (24-38) Sodium Level 139 mmol/L (136-145) Potassium Level 3.8 mmol/L (3.5-5.1) Chloride Level 102 mmol/L (98-107) Carbon Dioxide Level 26 mmol/L (21-32) Anion Gap 11 (6-14) Blood Urea Nitrogen 24 mg/dL (8-26) Creatinine 1.2 mg/dL (0.7-1.3) Estimated GFR (Cockcroft-Gault) 59.3 BUN/Creatinine Ratio 20 (6-20) Glucose Level 116 mg/dL (70-99) Calcium Level 8.2 mg/dL (8.5-10.1) Magnesium Level 2.1 mg/dL (1.8-2.4) Total Bilirubin 0.4 mg/dL (0.2-1.0) Aspartate Amino Transf (AST/SGOT) 42 U/L (15-37) Alanine Aminotransferase (ALT/SGPT) 40 U/L (16-63) Alkaline Phosphatase 90 U/L (46-116) Creatine Kinase 582 U/L (39-308) Troponin I Quantitative 0.097 ng/mL (0.000-0.055) EB-Klm-O-Type Natriuretic Peptide 2251 pg/mL (0-124) Total Protein 6.5 g/dL (6.4-8.2) Albumin 3.6 g/dL (3.4-5.0) Albumin/Globulin Ratio 1.2 (1.0-1.7) Urine Collection Type Unknown Urine Color Yellow Urine Clarity Clear Urine pH 7.0 (<5.0-8.0) Urine Specific [place] 1.020 (1.000-1.030) Urine Protein Negative mg/dL (NEG-TRACE) Urine Glucose (UA) Negative mg/dL (NEG) Urine Ketones (Stick) Negative mg/dL (NEG) Urine Blood Small (NEG) Urine Nitrite Negative (NEG) Urine Bilirubin Negative (NEG) Urine Urobilinogen Dipstick 0.2 mg/dL (0.2 mg/dL) Urine Leukocyte Esterase Negative (NEG) Urine RBC 0 /HPF (0-2) Urine WBC Occ /HPF (0-4) Urine Squamous Epithelial Cells Occ /LPF Urine Bacteria 0 /HPF (0-FEW) Urine Hyaline Casts Occasional /HPF Urine Mucus Slight /LPF Urine Sperm Present /HPF Urine Opiates Screen Neg (NEG) Urine Methadone Screen Neg (NEG) Urine Barbiturates Neg (NEG) Urine Phencyclidine Screen Neg (NEG) Urine Amphetamine/Methamphetamine Neg (NEG) Urine Benzodiazepines Screen Neg (NEG) Urine Cocaine Screen Neg (NEG) Urine Cannabinoids Screen Neg (NEG) Urine Ethyl Alcohol Neg (NEG) Medications Current Medications Dexamethasone Sodium Phosphate (Decadron) 10 mg 1X ONCE IV Last administered on 06/12/21at 23:52; Start 06/12/21 at 23:00; Stop 06/12/21 at 23:01; Status DC Diphenhydramine HCl (Benadryl) 25 mg 1X ONCE IVP Last administered on 06/12/21at 23:52; Start 06/12/21 at 23:00; Stop 06/12/21 at 23:01; Status DC Acetaminophen (Tylenol) 1,000 mg 1X ONCE PO Last administered on 06/12/21at 23:52; Start 06/12/21 at 23:00; Stop 06/12/21 at 23:01; Status DC Iohexol (Omnipaque 300 Mg/ml) 60 ml 1X ONCE IV Last administered on 06/12/21at 23:21; Start 06/12/21 at 23:30; Stop 06/12/21 at 23:31; Status DC Info (CONTRAST GIVEN -- Rx MONITORING) 1 each PRN DAILY PRN MC SEE COMMENTS; Start 06/12/21 at 23:00; Stop 06/14/21 at 22:59 Diphtheria/ Tetanus/Acell Pertussis (ADACEL TDap SYRINGE) 0.5 ml ONCE ONCE VAX IM Last administered on 06/12/21at 23:51; Start 06/12/21 at 23:30; Stop 06/12/21 at 23:31; Status DC Neomycin/ Polymyxin/ Bacitracin (Triple Antibiotic Ointment) 1 pkt 1X ONCE TP ; Start 06/13/21 at 01:00; Stop 06/13/21 at 01:01; Status DC Hydromorphone HCl (Dilaudid) 1 mg 1X ONCE IVP Last administered on 06/13/21at 01:00; Start 06/13/21 at 01:00; Stop 06/13/21 at 01:01; Status DC Lorazepam (Ativan Inj) 2 mg 1X PRN PRN IVP ANXIETY / AGITATION Last administered on 06/13/21at 12:11; Start 06/13/21 at 09:00 Levetiracetam 500 mg/Dextrose 105 ml @ 420 mls/hr Q12HR IV Last administered on 06/13/21at 20:42; Start 06/13/21 at 09:12; Stop 06/14/21 at 08:52; Status DC Lorazepam (Ativan Inj) 2 mg 1X ONCE IVP ; Start 06/13/21 at 12:30; Stop 06/13/21 at 12:31; Status DC Lacosamide 100 mg/ Dextrose 60 ml @ 120 mls/hr BID IV Last administered on 06/13/21at 21:22; Start 06/13/21 at 14:00; Stop 06/14/21 at 08:52; Status DC Levetiracetam (Keppra) 500 mg BID PO Last administered on 06/14/21at 09:35; Start 06/14/21 at 09:00 Lacosamide (Vimpat) 100 mg BID PO Last administered on 06/14/21at 09:36; Start 06/14/21 at 09:00 Atorvastatin Calcium (Lipitor) 20 mg QHS PO ; Start 06/14/21 at 21:00 Docusate Sodium (Colace) 100 mg BID PO ; Start 06/14/21 at 11:00 Levetiracetam (Keppra) 1,250 mg BID PO ; Start 06/14/21 at 21:00; Status UNV Levothyroxine Sodium (Synthroid) 50 mcg DAILY06 PO ; Start 06/14/21 at 11:00 Fish Oil (Fish Oil) 1,000 mg DAILY PO ; Start 06/14/21 at 11:00 Metoprolol Tartrate (Lopressor) 50 mg BID PO ; Start 06/14/21 at 11:00 Multivitamins (Thera M Plus) 1 tab DAILY PO ; Start 06/14/21 at 11:00 Active Scripts Active Reported Synthroid (Levothyroxine Sodium) 50 Mcg Tablet 1 Tab PO DAILY Multivitamin 1 Each Tablet 1 Each PO DAILY Metoprolol Tartrate 100 Mg Tablet 0.5 Tab PO BID Keppra (Levetiracetam) 500 Mg Tablet 2.5 Tab PO BID 30 Days Fish Oil Concentrate Softgel (Docosahexanoic Acid/Epa) 1 Each Capsule 1 Cap PO DAILY 30 Days Eliquis (Apixaban) 5 Mg Tablet 5 Mg PO BID Colace (Docusate Sodium) 100 Mg Capsule 1 Cap PO BID 30 Days Atorvastatin Calcium 40 Mg Tablet 0.5 Tab PO DAILY Vitals/I & O Vital Sign - Last 24 Hours 06/13/21 06/13/21 06/13/21 06/13/21 11:40 14:44 19:00 20:52 Temp 98.1 98.0 98.1 98.0 Pulse 70 69 70 Resp 24 18 B/P (MAP) 141/81 (101) 118/71 (87) 168/79 (108) Pulse Ox 98 99 97 O2 Delivery Nasal Cannula Room Air Room Air 06/13/21 06/14/21 06/14/21 23:00 03:00 06:59 Temp 98.2 97.4 97.7 98.2 97.4 97.7 Pulse 69 72 70 Resp 18 18 18 B/P (MAP) 136/77 (96) 175/98 (123) 176/90 (118) Pulse Ox 95 95 98 O2 Delivery Room Air Room Air Room Air Intake and Output 06/13/21 06/13/21 06/14/21 15:00 23:00 07:00 Intake Total 180 ml 300 ml 150 ml Output Total 400 ml 550 ml 550 ml Balance -220 ml -250 ml -400 ml Justicifation of Admission Dx: Justifications for Admission: Justification of Admission Dx: N/A JOSE G HARLEY MD Jun 14, 2021 10:39
[2021-06-14 11:00] VITALS: BP 173/95
--- NOTE | 2021-06-14 11:04 | PDOC ---
[facility] [facility] PROGRESS NOTE Date of Service DOS: DATE: 06/14/21 TIME: 10:59 Chief Complaint Chief Complaint AMS Nstemi History of Present Illness History of Present Illness 06/14/2021 Pt seen and examined at bedside Pt was sitting up and in NAD Pt has Hx of seizures D/W RN Chart reviewed The patient is a pleasant elderly male who fell. He apparently slipped and fell and hit his head. 911 was called. He does have a history of a seizure disorder as well. While in the ER, he was also noted to have a bump in his troponin to 0.09. I discussed the case with the ER physician. We are admitting the patient with consultation to Neurology and Cardiology. Vitals/I&O Vitals/I&O: Vital Signs Date Time Temp Pulse Resp B/P (MAP) Pulse Ox O2 Delivery O2 Flow Rate FiO2 06/14/21 06:59 97.7 70 18 176/90 (118) 98 Room Air 97.7 I & O 06/13/21 06/13/21 06/14/21 15:00 23:00 07:00 Intake Total 180 ml 300 ml 150 ml Output Total 400 ml 550 ml 550 ml Balance -220 ml -250 ml -400 ml Physical Exam General: Alert, Cooperative Heart: Regular rate, Normal S1 Lungs: Clear Abdomen: Normal bowel sounds, Soft Extremities: No clubbing, No cyanosis Skin: Other (head injury) Review of Systems Review of Systems: Pt denies chest pain and SOB Pt denies N/V Assessment and Plan Assessmemt and Plan 06/14/2021 Assessment: AMS NSTEMI Hx of seizures Plan: D/C disposition pending Cardiac monitoring [facility] PT[facility] Consult cardiology Home Rx Full code Problems Medical Problems: (1) Altered mental status Status: Acute (2) Need for Tdap vaccination Status: Acute (3) NSTEMI (non-ST elevated myocardial infarction) Status: Acute (4) Traumatic hematoma of scalp Status: Acute Comment Review of Relevant I have reviewed the following items rashad (where applicable) has been applied. Medications: Current Medications Medications (Trade) Dose Ordered Sig/Hollie Route PRN Reason Start Time Stop Time Status Last Admin Dose Admin Lacosamide 100 mg/ Dextrose 60 ml @ 120 mls/hr BID IV 06/13/21 14:00 06/14/21 08:52 DC 06/13/21 21:22 Levetiracetam (Keppra) 500 mg BID PO 06/14/21 09:00 06/14/21 09:35 Lacosamide (Vimpat) 100 mg BID PO 06/14/21 09:00 06/14/21 09:36 Justifications for Admission Other Justification JAZMINE MADRID III DO Jun 14, 2021 11:04
[2021-06-14] MEDS: MULTIVITAMIN with MINERAL TABLET. PO SCH (12:24)
[2021-06-14] MEDS: DOCUSATE SODIUM 100 MG CAPSULE. PO SCH ×2 (12:24→20:40)
[2021-06-14] MEDS: OMEGA-3 FATTY ACIDS/FISH OIL 1,000 MG CAPSULE. PO SCH (12:24)
[2021-06-14] MEDS: LEVOTHYROXINE 50 MCG TABLET PO SCH (12:24)
[2021-06-14] MEDS: METOPROLOL TART IMMED RELEASE 50 MG TABLET. PO SCH ×2 (12:24→20:40)
--- NOTE | 2021-06-14 12:37 | NUR ---
SS following up with discharge planning. SS reviewed pt chart and discussed with pt RN. Pt is from home ([facility], ) and is currently on room air. Neurology following. Cardiology consulted. PT/OT ordered. SS will continue to follow for discharge planning.
--- NOTE | 2021-06-14 13:26 | PDOC2 ---
[facility] 06/14/21 1326: CARDIAC CONSULT DATE OF CONSULT Date of Consult DATE: 06/14/21 TIME: 12:56 REASON FOR CONSULT Reason for Consult: elevated troponin REFERRING PHYSICIAN Referring Physician: May SOURCE Source: Chart review, Patient HISTORY OF PRESENT ILLNESS HISTORY OF PRESENT ILLNESS This is a pleasant 75 yo male admitted for complains of fall. He is a poor historian and apparently he fell and has no recollection of what happened to him prior and after the fall he has no recollection of his state. He was told that he might have had a seizure. Denies any prior chest pain, SOA or palpitations. He has not fallen recently from what he could remember. No fracture but notable for right parietal skin contusion. Presently sitting up and in no distress. No hx of CAD, VTE PAST MEDICAL HISTORY Cardiovascular: AFIB, CHF, HTN, Other (CHB) Pulmonary: Other (FRANKLIN cpap) CENTRAL NERVOUS SYSTEM: Seizure GI: No pertinent hx Heme/Onc: No pertinent hx Hepatobiliary: No pertinent hx Psych: No pertinent hx Musculoskeletal: Osteoarthritis Rheumatologic: No pertinent hx Infectious disease: No pertinent hx Renal/: Other (urinary retention) Endocrine: Hypothyroidism Dermatology: No pertinent hx PAST SURGICAL HISTORY Past Surgical History: Pacemaker ([facility] Tomas), Appendectomy FAMILY HISTORY Family History noncontributory to CV SOCIAL HISTORY Smoke: No ALCOHOL: none Drugs: None Lives: Alone CURRENT MEDICATIONS CURRENT MEDICATIONS Current Medications Medications (Trade) Dose Ordered Sig/Hollie Route PRN Reason Start Time Stop Time Status Last Admin Dose Admin Lacosamide 100 mg/ Dextrose 60 ml @ 120 mls/hr BID IV 06/13/21 14:00 06/14/21 08:52 DC 06/13/21 21:22 Levetiracetam (Keppra) 500 mg BID PO 06/14/21 09:00 06/14/21 09:35 Lacosamide (Vimpat) 100 mg BID PO 06/14/21 09:00 06/14/21 09:36 Docusate Sodium (Colace) 100 mg BID PO 06/14/21 11:00 06/14/21 12:24 Levothyroxine Sodium (Synthroid) 50 mcg DAILY06 PO 06/14/21 11:00 06/14/21 12:24 Fish Oil (Fish Oil) 1,000 mg DAILY PO 06/14/21 11:00 06/14/21 12:24 Metoprolol Tartrate (Lopressor) 50 mg BID PO 06/14/21 11:00 06/14/21 12:24 Multivitamins (Thera M Plus) 1 tab DAILY PO 06/14/21 11:00 06/14/21 12:24 ALLERGIES ALLERGIES: Coded Allergies: No Known Drug Allergies (Unverified , 06/12/21) ROS Review of System limited, poor historian PHYSICAL EXAM General: Alert, Oriented X3, Cooperative, No acute distress HEENT: Atraumatic, Mucous membr. moist/pink Lungs: Other (diminished bases) Heart: Other (AFIB/flutter, 2/6 systolic murmur to LLS border) Abdomen: Soft, No tenderness Extremities: No cyanosis, No edema Skin: Other (right parietal contusion) Neuro: Normal speech, Sensation intact Psych/Mental Status: Mental status NL, Mood NL MUSCULOSKELETAL: Osteoarthritic changes both hands VITALS/I&O VITALS/I&O: Vital Signs Date Time Temp Pulse Resp B/P (MAP) Pulse Ox O2 Delivery O2 Flow Rate FiO2 06/14/21 12:24 69 173/95 06/14/21 11:00 98.5 18 98 Room Air 98.5 I & O 06/13/21 06/13/21 06/14/21 15:00 23:00 07:00 Intake Total 180 ml 300 ml 150 ml Output Total 400 ml 550 ml 550 ml Balance -220 ml -250 ml -400 ml ECHOCARDIOGRAM ECHOCARDIOGRAM ROOPA 09/13/2018 There was no thrombus visualized in the left atrial appendage utilizing multiple views and color flow Doppler Mildly dilated left atrium There is a patent foramen ovale present with bidirectional shunting indicated by saline contrast. Aneurysmal intra atrial septum. No valvular vegetations Qualitatively normal LV size and systolic function, EF ~ 55 % Qualitatively normal RV size and systolic function Mild tricuspid regurgitation. Moderately dilated aortic sinus measuring 4.5cm ASSESSMENT/PLAN ASSESSMENT/PLAN 1. Fall with parietal contusion: no fractures. suspect seizures 2. Mild rhabdomyolysis 3. Mild troponin elevation: no cardiac symptoms. Type 2 likely from above. 4. PPM in situ with hx of CHB: [facility] Tomas. V paced 5. Afib/flutter rate controlled: possibly chronic 6. HLP 7. HTN: labile 8. suspect chronic diastolic CHF: compensated Recommendations 1. Hold statin while CK is elevated 2. consult neurology 3. Start norvasc Continue metoprolol. ASA for now for stroke prevention. Hold eliquis 4. Interrogate Device and note any contributing arrhythmias 5. oupt TTE. recheck trop 6. Consider [facility] referral CHERYL COWAN MD 06/14/21 1343: CARDIAC CONSULT ASSESSMENT/PLAN ASSESSMENT/PLAN Pt. seen and examined. Agree with above [employer] note. Supportive care. [facility] Jun 14, 2021 13:26 CHERYL COWAN MD Jun 14, 2021 13:43
[2021-06-14 15:00] VITALS: BP 171/97
[2021-06-14] MEDS: ASPIRIN ENTERIC COATED 81 MG TABLET.DR. PO SCH (15:08)
[2021-06-14 19:00] VITALS: BP 177/96
[2021-06-14] MEDS ORDERED: levETIRAcetam 500 MG TABLET PO SCH (21:00)
[2021-06-14] MEDS ORDERED: ATORVASTATIN CALCIUM 20 MG TABLET PO SCH (21:00)
[2021-06-14 22:58] VITALS: BP 172/102
[2021-06-15] VITALS (7 sets, daily range): BP systolic 121–186; BP diastolic 69–108
[2021-06-15] MEDS: LEVOTHYROXINE 50 MCG TABLET PO SCH (06:20)
[2021-06-15] MEDS: OMEGA-3 FATTY ACIDS/FISH OIL 1,000 MG CAPSULE. PO SCH (08:06)
[2021-06-15] MEDS: ASPIRIN ENTERIC COATED 81 MG TABLET.DR. PO SCH (08:06)
[2021-06-15] MEDS: DOCUSATE SODIUM 100 MG CAPSULE. PO SCH ×2 (08:07→19:35)
[2021-06-15] MEDS: levETIRAcetam 500 MG TABLET PO SCH ×2 (08:07→19:35)
[2021-06-15] MEDS: LACOSAMIDE 50 MG TABLET PO SCH ×2 (08:07→19:35)
[2021-06-15] MEDS: MULTIVITAMIN with MINERAL TABLET. PO SCH (08:07)
[2021-06-15] MEDS: METOPROLOL TART IMMED RELEASE 50 MG TABLET. PO SCH ×2 (08:08→19:35)
--- NOTE | 2021-06-15 11:16 | PDOC ---
[facility] [facility] PROGRESS NOTE Date of Service DOS: DATE: 06/15/21 TIME: 11:13 Chief Complaint Chief Complaint AMS Nstemi History of Present Illness History of Present Illness 06/15/2021 Pt seen and examined Pt was sitting up. He was in NAD D/W RN Chart reviewed 06/14/2021 Pt seen and examined at bedside Pt was sitting up and in NAD Pt has Hx of seizures D/W RN Chart reviewed The patient is a pleasant elderly male who fell. He apparently slipped and fell and hit his head. 911 was called. He does have a history of a seizure disorder as well. While in the ER, he was also noted to have a bump in his troponin to 0.09. I discussed the case with the ER physician. We are admitting the patient with consultation to Neurology and Cardiology. Vitals/I&O Vitals/I&O: Vital Signs Date Time Temp Pulse Resp B/P (MAP) Pulse Ox O2 Delivery O2 Flow Rate FiO2 06/15/21 10:48 97.5 69 18 121/69 (86) 99 Room Air 97.5 I & O 06/14/21 06/14/21 06/15/21 15:00 23:00 07:00 Intake Total 300 ml 240 ml Output Total 200 ml 365 ml 400 ml Balance 100 ml -125 ml -400 ml Physical Exam General: Alert, Oriented X3, Cooperative, No acute distress Heart: Regular rate, Normal S1, Other (AFIB/flutter, 2/6 systolic murmur to LLS border) Lungs: Clear Abdomen: Soft, No tenderness Extremities: No cyanosis, No edema Skin: Other (right parietal contusion) Labs Labs: Laboratory Tests Test 06/14/21 15:00 Troponin I Quantitative 0.034 ng/mL (0.000-0.055) Review of Systems Review of Systems: Pt denies chest pain Pt denies N/V Assessment and Plan Assessmemt and Plan 06/15/2021 Assessment: AMS Nstemi Seizure disorder Plan: D/C disposition pending Appreciate neurology input PTOT Continue seizure Rx Wound care DVT prophylaxis Home Rx Problems Medical Problems: (1) Altered mental status Status: Acute (2) Need for Tdap vaccination Status: Acute (3) NSTEMI (non-ST elevated myocardial infarction) Status: Acute (4) Traumatic hematoma of scalp Status: Acute Comment Review of Relevant I have reviewed the following items rashad (where applicable) has been applied. Medications: Current Medications Medications (Trade) Dose Ordered Sig/Hollie Route PRN Reason Start Time Stop Time Status Last Admin Dose Admin Atorvastatin Calcium (Lipitor) 20 mg QHS PO 06/14/21 21:00 06/14/21 20:40 Amlodipine Besylate (Norvasc) 5 mg 1X ONCE PO 06/14/21 13:30 06/14/21 13:31 DC 06/14/21 15:08 Amlodipine Besylate (Norvasc) 5 mg DAILY PO 06/15/21 09:00 06/15/21 08:07 Aspirin (Ecotrin) 81 mg DAILYWBKFT PO 06/14/21 14:30 06/15/21 08:06 Justifications for Admission Other Justification JAZMINE MADRID III DO Jun 15, 2021 11:16
[2021-06-16 02:33] VITALS: BP 175/99
[2021-06-16] MEDS: LEVOTHYROXINE 50 MCG TABLET PO SCH (06:13)
[2021-06-16 06:29] VITALS: BP 187/108
[2021-06-16 08:18] LABS: CALCIUM 8.9 mg/dL (8.5-10.1); GFR 73.2; POTASSIUM 4.2 mmol/L (3.5-5.1)
[2021-06-16] MEDS: MULTIVITAMIN with MINERAL TABLET. PO SCH (10:27)
[2021-06-16] MEDS: ASPIRIN ENTERIC COATED 81 MG TABLET.DR. PO SCH (10:28)
[2021-06-16] MEDS: METOPROLOL TART IMMED RELEASE 50 MG TABLET. PO SCH ×2 (10:28→20:26)
[2021-06-16] MEDS: OMEGA-3 FATTY ACIDS/FISH OIL 1,000 MG CAPSULE. PO SCH (10:28)
[2021-06-16] MEDS: DOCUSATE SODIUM 100 MG CAPSULE. PO SCH ×2 (10:28→20:26)
[2021-06-16] MEDS: levETIRAcetam 500 MG TABLET PO SCH ×2 (10:29→20:26)
[2021-06-16] MEDS: LACOSAMIDE 50 MG TABLET PO SCH ×2 (10:29→20:27)
[2021-06-16 11:12] VITALS: BP 141/83
--- NOTE | 2021-06-16 13:22 | PDOC ---
[facility] [facility] PROGRESS NOTE Date of Service DOS: DATE: 06/16/21 TIME: 13:19 Chief Complaint Chief Complaint AMS Nstemi History of Present Illness History of Present Illness 06/16/2021 Pt seen and examined Pt was sitting up comfortably Pt expressed desire to go home however he may need to go to a rehab facility PTOT has been working with him D/W RN Chart reviewed Wound CDIT 06/15/2021 Pt seen and examined Pt was sitting up. He was in NAD D/W RN Chart reviewed 06/14/2021 Pt seen and examined at bedside Pt was sitting up and in NAD Pt has Hx of seizures D/W RN Chart reviewed The patient is a pleasant elderly male who fell. He apparently slipped and fell and hit his head. 911 was called. He does have a history of a seizure disorder as well. While in the ER, he was also noted to have a bump in his troponin to 0.09. I discussed the case with the ER physician. We are admitting the patient with consultation to Neurology and Cardiology. Vitals/I&O Vitals/I&O: Vital Signs Date Time Temp Pulse Resp B/P (MAP) Pulse Ox O2 Delivery O2 Flow Rate FiO2 06/16/21 11:12 96.2 69 22 141/83 (102) 97 Room Air 96.2 I & O 06/15/21 06/15/21 06/16/21 15:00 23:00 07:00 Intake Total 360 ml 200 ml 0 ml Output Total 450 ml 1900 ml 1550 ml Balance -90 ml -1700 ml -1550 ml Physical Exam General: Alert, Oriented X3, Cooperative, No acute distress Heart: Regular rate, Normal S1, Other (AFIB/flutter, 2/6 systolic murmur to LLS border) Lungs: Clear Abdomen: Soft, No tenderness Extremities: No cyanosis, No edema Skin: Other (right parietal contusion) Labs Labs: Laboratory Tests Test 06/16/21 06:05 Sodium Level 141 mmol/L (136-145) Potassium Level 4.2 mmol/L (3.5-5.1) Chloride Level 105 mmol/L (98-107) Carbon Dioxide Level 26 mmol/L (21-32) Anion Gap 10 (6-14) Blood Urea Nitrogen 19 mg/dL (8-26) Creatinine 1.0 mg/dL (0.7-1.3) Estimated GFR (Cockcroft-Gault) 73.2 Glucose Level 84 mg/dL (70-99) Calcium Level 8.9 mg/dL (8.5-10.1) Creatine Kinase 279 U/L (39-308) Review of Systems Review of Systems: Pt denies N/V Pt denies chest pain Assessment and Plan Assessmemt and Plan 06/16/2021 Assessment: AMS Nstemi Seizure disorder Plan: D/C disposition pending Appreciate neurology input PTOT Kepra Continue seizure Rx Wound care DVT prophylaxis Home Rx Cardiac monitoring Problems Medical Problems: (1) Altered mental status Status: Acute (2) Need for Tdap vaccination Status: Acute (3) NSTEMI (non-ST elevated myocardial infarction) Status: Acute (4) Traumatic hematoma of scalp Status: Acute Comment Review of Relevant I have reviewed the following items rashad (where applicable) has been applied. Justifications for Admission Other Justification JAZMINE MADRID III DO Jun 16, 2021 13:22
[2021-06-16 15:00] VITALS: BP 168/95
[2021-06-16 19:23] VITALS: BP 140/82
[2021-06-16] MEDS: ATORVASTATIN CALCIUM 20 MG TABLET PO SCH (20:26)
[2021-06-16] MEDS: TEMAZEPAM 15 MG CAPSULE PO PRN (20:26)
[2021-06-16 22:33] VITALS: BP 166/95
[2021-06-17 02:39] VITALS: BP 157/93
[2021-06-17] MEDS: LEVOTHYROXINE 50 MCG TABLET PO SCH (04:42)
[2021-06-17 07:00] VITALS: BP 169/95
[2021-06-17] MEDS: levETIRAcetam 500 MG TABLET PO SCH ×2 (09:16→20:38)
[2021-06-17] MEDS: OMEGA-3 FATTY ACIDS/FISH OIL 1,000 MG CAPSULE. PO SCH (09:16)
[2021-06-17] MEDS: ASPIRIN ENTERIC COATED 81 MG TABLET.DR. PO SCH (09:16)
[2021-06-17] MEDS: METOPROLOL TART IMMED RELEASE 50 MG TABLET. PO SCH ×2 (09:16→20:38)
[2021-06-17] MEDS: DOCUSATE SODIUM 100 MG CAPSULE. PO SCH ×2 (09:16→20:38)
[2021-06-17] MEDS: MULTIVITAMIN with MINERAL TABLET. PO SCH (09:17)
[2021-06-17] MEDS: LACOSAMIDE 50 MG TABLET PO SCH ×2 (09:17→20:37)
--- NOTE | 2021-06-17 09:48 | PDOC ---
PROGRESS NOTES Date of Service DATE: 06/17/21 TIME: 09:47 Assessment Problems Medical Problems: (1) Altered mental status Status: Acute (2) Need for Tdap vaccination Status: Acute (3) NSTEMI (non-ST elevated myocardial infarction) Status: Acute (4) Traumatic hematoma of scalp Status: Acute Epilepsy with prolonged postictal state, now bright and alert Right scalp wound okay Plan Continue levetiracetam and lacosamide Note plans for SNU Follow-up with his neurologist, Dr. Ruiz Subjective No complaints Objective Vital Signs Date Time Temp Pulse Resp B/P (MAP) Pulse Ox O2 Delivery O2 Flow Rate FiO2 06/17/21 09:16 62 169/95 06/17/21 07:00 97.7 18 98 Room Air 97.7 Intake and Output 06/17/21 07:00 Intake Total 300 ml Output Total 2575 ml Balance -2275 ml Intake Oral 300 ml Output Urine Total 2575 ml Stool Total 0 ml PHYSICAL EXAM Alert. Oriented to time, place and person. PERRL. EOMI. CN: no focal findings. Muscle tone: normal. Muscle strength: 4/5 DTR: 1+ Plantar reflex: flexor Gait: not examined in bed. Sensory exam: no abnormal findings. No cerebellar signs elicited. Review of Relevant I have reviewed the following items rashad (where applicable) has been applied. Labs Laboratory Tests Test 06/16/21 06:05 Sodium Level 141 mmol/L (136-145) Potassium Level 4.2 mmol/L (3.5-5.1) Chloride Level 105 mmol/L (98-107) Carbon Dioxide Level 26 mmol/L (21-32) Anion Gap 10 (6-14) Blood Urea Nitrogen 19 mg/dL (8-26) Creatinine 1.0 mg/dL (0.7-1.3) Estimated GFR (Cockcroft-Gault) 73.2 Glucose Level 84 mg/dL (70-99) Calcium Level 8.9 mg/dL (8.5-10.1) Creatine Kinase 279 U/L (39-308) Medications Current Medications Dexamethasone Sodium Phosphate (Decadron) 10 mg 1X ONCE IV Last administered on 06/12/21at 23:52; Start 06/12/21 at 23:00; Stop 06/12/21 at 23:01; Status DC Diphenhydramine HCl (Benadryl) 25 mg 1X ONCE IVP Last administered on 06/12/21at 23:52; Start 06/12/21 at 23:00; Stop 06/12/21 at 23:01; Status DC Acetaminophen (Tylenol) 1,000 mg 1X ONCE PO Last administered on 06/12/21at 23:52; Start 06/12/21 at 23:00; Stop 06/12/21 at 23:01; Status DC Iohexol (Omnipaque 300 Mg/ml) 60 ml 1X ONCE IV Last administered on 06/12/21at 23:21; Start 06/12/21 at 23:30; Stop 06/12/21 at 23:31; Status DC Info (CONTRAST GIVEN -- Rx MONITORING) 1 each PRN DAILY PRN MC SEE COMMENTS; Start 06/12/21 at 23:00; Stop 06/14/21 at 22:59; Status DC Diphtheria/ Tetanus/Acell Pertussis (ADACEL TDap SYRINGE) 0.5 ml ONCE ONCE VAX IM Last administered on 06/12/21at 23:51; Start 06/12/21 at 23:30; Stop 06/12/21 at 23:31; Status DC Neomycin/ Polymyxin/ Bacitracin (Triple Antibiotic Ointment) 1 pkt 1X ONCE TP ; Start 06/13/21 at 01:00; Stop 06/13/21 at 01:01; Status DC Hydromorphone HCl (Dilaudid) 1 mg 1X ONCE IVP Last administered on 06/13/21at 01:00; Start 06/13/21 at 01:00; Stop 06/13/21 at 01:01; Status DC Lorazepam (Ativan Inj) 2 mg 1X PRN PRN IVP ANXIETY / AGITATION Last administered on 06/13/21at 12:11; Start 06/13/21 at 09:00 Levetiracetam 500 mg/Dextrose 105 ml @ 420 mls/hr Q12HR IV Last administered on 06/13/21at 20:42; Start 06/13/21 at 09:12; Stop 06/14/21 at 08:52; Status DC Lorazepam (Ativan Inj) 2 mg 1X ONCE IVP ; Start 06/13/21 at 12:30; Stop 06/13/21 at 12:31; Status DC Lacosamide 100 mg/ Dextrose 60 ml @ 120 mls/hr BID IV Last administered on 06/13/21 21:22; Start 06/13/21 at 14:00; Stop 06/14/21 at 08:52; Status DC Levetiracetam (Keppra) 500 mg BID PO Last administered on 06/17/21 09:16; Start 06/14/21 at 09:00 Lacosamide (Vimpat) 100 mg BID PO Last administered on 06/17/21 09:17; Start 06/14/21 at 09:00 Atorvastatin Calcium (Lipitor) 20 mg QHS PO Last administered on 06/14/21at 20:40; Start 06/14/21 at 21:00; Stop 06/15/21 at 14:22; Status DC Docusate Sodium (Colace) 100 mg BID PO Last administered on 06/17/21 09:16; Start 06/14/21 at 11:00 Levetiracetam (Keppra) 1,250 mg BID PO ; Start 06/14/21 at 21:00; Status UNV Levothyroxine Sodium (Synthroid) 50 mcg DAILY06 PO Last administered on 06/17/21at 04:42; Start 06/14/21 at 11:00 Fish Oil (Fish Oil) 1,000 mg DAILY PO Last administered on 06/17/21 09:16; Start 06/14/21 at 11:00 Metoprolol Tartrate (Lopressor) 50 mg BID PO Last administered on 06/17/21at 09:16; Start 06/14/21 at 11:00 Multivitamins (Thera M Plus) 1 tab DAILY PO Last administered on 06/17/21 09:17; Start 06/14/21 at 11:00 Amlodipine Besylate (Norvasc) 5 mg 1X ONCE PO Last administered on 06/14/21 15:08; Start 06/14/21 at 13:30; Stop 06/14/21 at 13:31; Status DC Amlodipine Besylate (Norvasc) 5 mg DAILY PO Last administered on 06/17/21 09:16; Start 06/15/21 at 09:00 Aspirin (Ecotrin) 81 mg DAILYWBKFT PO Last administered on 06/17/21 09:16; Start 06/14/21 at 14:30 Atorvastatin Calcium (Lipitor) 20 mg QHS PO Last administered on 06/16/21at 20:26; Start 06/16/21 at 21:00 Temazepam (Restoril) 15 mg PRN QHS PRN PO INSOMNIA Last administered on 06/16/21at 20:26; Start 06/16/21 at 20:00 Active Scripts Active Reported Synthroid (Levothyroxine Sodium) 50 Mcg Tablet 1 Tab PO DAILY Multivitamin 1 Each Tablet 1 Each PO DAILY Metoprolol Tartrate 100 Mg Tablet 0.5 Tab PO BID Keppra (Levetiracetam) 500 Mg Tablet 2.5 Tab PO BID 30 Days Fish Oil Concentrate Softgel (Docosahexanoic Acid/Epa) 1 Each Capsule 1 Cap PO DAILY 30 Days Eliquis (Apixaban) 5 Mg Tablet 5 Mg PO BID Colace (Docusate Sodium) 100 Mg Capsule 1 Cap PO BID 30 Days Atorvastatin Calcium 40 Mg Tablet 0.5 Tab PO DAILY Vitals/I & O Vital Sign - Last 24 Hours 06/16/21 06/16/21 06/16/21 06/16/21 10:28 10:28 11:12 15:00 Temp 96.2 97.0 96.2 97.0 Pulse 70 70 69 69 Resp 22 20 B/P (MAP) 187/108 187/108 141/83 (102) 168/95 (119) Pulse Ox 97 98 O2 Delivery Room Air Room Air 06/16/21 06/16/21 06/16/21 06/16/21 19:23 19:25 20:26 22:33 Temp 98.6 98.4 98.6 98.4 Pulse 70 70 70 Resp 18 18 B/P (MAP) 140/82 (101) 140/82 166/95 (118) Pulse Ox 94 97 O2 Delivery Room Air Room Air Room Air 06/17/21 06/17/21 06/17/21 06/17/21 02:39 07:00 09:16 09:16 Temp 98.1 97.7 98.1 97.7 Pulse 70 62 62 62 Resp 18 18 B/P (MAP) 157/93 (114) 169/95 (119) 169/95 169/95 Pulse Ox 95 98 O2 Delivery Room Air Room Air Intake and Output 06/16/21 06/16/21 06/17/21 15:00 23:00 07:00 Intake Total 300 ml 0 ml Output Total 200 ml 1225 ml 1150 ml Balance -200 ml -925 ml -1150 ml Justicifation of Admission Dx: Justifications for Admission: Justification of Admission Dx: N/A JOSE G HARLEY MD Jun 17, 2021 09:48
--- NOTE | 2021-06-17 10:49 | PDOC ---
PROGRESS NOTES Date of Service: DATE: 06/17/21 TIME: 10:47 Chief Complaint Chief Complaint AMS Nstemi History of Present Illness History of Present Illness 06/16/2021 Pt seen and examined Pt was sitting up comfortably Pt expressed desire to go home however he may need to go to a rehab facility PTOT has been working with him D/W RN Chart reviewed Wound CDIT 06/15/2021 Pt seen and examined Pt was sitting up. He was in NAD D/W RN Chart reviewed 06/14/2021 Pt seen and examined at bedside Pt was sitting up and in NAD Pt has Hx of seizures D/W RN Chart reviewed The patient is a pleasant elderly male who fell. He apparently slipped and fell and hit his head. 911 was called. He does have a history of a seizure disorder as well. While in the ER, he was also noted to have a bump in his troponin to 0.09. I discussed the case with the ER physician. We are admitting the patient with consultation to Neurology and Cardiology. 06/17/2021 Pt seen and examined sitting comfortably needs to go to a rehab facility [facility] 8[facility]17 planned PTOT has been working with him D/W RN Chart reviewed Wound CDIT covid screen Enlarged heart with calcific coronary artery disease. Epilepsy with prolonged postictal state, alert Right scalp wound okay Continue levetiracetam and lacosamide Vitals Vitals Vital Signs Date Time Temp Pulse Resp B/P (MAP) Pulse Ox O2 Delivery O2 Flow Rate FiO2 06/17/21 09:16 62 169/95 06/17/21 07:00 97.7 18 98 Room Air 97.7 Physical Exam General: Alert, Oriented X3, Cooperative, No acute distress Heart: Regular rate, Normal S1, Other (AFIB/flutter, 2/6 systolic murmur to LLS border) Lungs: Clear Abdomen: Soft, No tenderness Extremities: No cyanosis, No edema Skin: Other (right parietal contusion) Labs LABS think and talk about your own wishes for healthcare in case youre ever not able to tell your loved ones or healthcare team what your wishes are. If you became really sick tomorrow, would your loved ones or healthcare team know what your wishes were? Here are some examples of different sets of goals and health care directives for your conversations: My wish is to use all medical therapies including resuscitation (such as CPR) and artificial life-sustaining treatments (such as machines and medicine) in an intensive care unit, to keep me alive if at all possible. My wish is to live as long as possible, but I dont want attempts to bring me back to life if my heart and breathing stop. I would like full medical care but without using resuscitation or artificial life-sustaining intensive treatments, if these are unlikely to make me live longer or restore me to a certain quality of life. I will accept treatments that try to fix medical problems, but if Im not getting better or going to have a certain quality of life, I would want to switch to focusing only on my comfort and letting my happen naturally. My wish is for healthcare to focus on my comfort and lessen suffering. I would like medical care that focuses only on my quality of life and that allows me to naturally. Consider: What does a good quality of life mean for me? For many people, it is the ability to live independently and tell their own story. I may define it differently. Under what circumstances would I not want to be kept alive by medical treatments, resuscitation, or intensive care? What kind of changes to my health or life might make me change my mind? If I clearly am facing the last chapter of my life, how do I want the story to end? Who do I want to speak for me if I cant speak for myself? Do they understand my preferences? Are they willing to assume the role of my Durable Power of Columnist/Commentator? Can I change my Goals of Care Designation? Yes, your Goals of Care Designation can be changed at any time. It should be reviewed if: your health condition changes your circumstances change (such as new understanding) you are transferred or admitted to another healthcare setting dpoa review, to pt portal 16 min and question review PATIENT: WALT MORROW ACCOUNT: [id number] : 1945 LOCATION: ER AGE: 75 SEX: M EXAM STATUS: REG ER ORD. PHYSICIAN: JEAN GONZALEZ DO REASON: fall/confused/trauma PROCEDURE: CT CHEST ABD PELVIS W/CONTRAST STUDY: 1. CT chest with contrast 2. CT abdomen/pelvis with contrast 3. CT thoracic spine without contrast 4. CT lumbar spine without contrast INDICATION: Fall. Confusion. COMPARISON: None. TECHNIQUE: Helical CT imaging of the chest, abdomen and pelvis in addition to smaller [id number] images through the thoracic and lumbar spine performed after the intravenous administration of contrast. Coronal and sagittal reformats were obtained. One or more of the following individualized dose reduction techniques were utilized for this examination: 1. Automated exposure control 2. Adjustment of the mA and/or kV according to patient size 3. Use of iterative reconstruction technique. FINDINGS: CT CHEST: No evidence for acute thoracic aorta injury. The visualized great vessels and vertebral arteries are patent. Scattered calcified and noncalcified atheromatous plaque to include coronary artery involvement. Left chest wall dual-lead pacer. The heart is prominent in size. No retrosternal hematoma, pericardial effusion or pneumomediastinum. No significantly enlarged lymph nodes. No pleural effusion or pneumothorax. Scattered groundglass and reticular/branching densities mainly at the subpleural aspect of both lungs. No suspicious nodule based on size that would warrant short-term follow-up. Patent central airways. Unremarkable thyroid and axilla. No large body wall hematoma. Severe arthrosis at the right more so than left shoulders. Loose bodies bilaterally. Joint effusion best seen on the left. Intact sternum. No displaced rib fracture. Thoracic spine findings detailed separately. CT ABDOMEN/PELVIS: Degraded exam due to streak artifact induced by the patient's arms. No acute abnormality of the liver, spleen or kidneys. Gallstones without CT manifestations of acute cholecystitis noting motion. Nondilated biliary tree. Unremarkable pancreas and adrenal glands. Unremarkable bladder. Mild enlargement of the prostate. Scattered colonic diverticuli. Mild volume colonic stool burden. Normal course and caliber of the small bowel. Unremarkable stomach. No evidence for acute injury to the aorta or iliofemoral system. Tortuosity of the aorta without aneurysmal dilatation. Scattered atheromatous plaque. No lymphadenopathy. No free fluid or pneumoperitoneum. No large body wall hernia. Dystrophic mineralization within the right rectus femoris. No acute fracture seen throughout the pelvis. Lumbar spine findings detailed separately. CT THORACIC SPINE: No acute fracture. Alignment in the sagittal plane is within normal limits. Mild broad dextrocurvature. Scattered degenerative changes with a central disc osteophyte protrusion at T8- T9 and a left paracentral disc osteophyte protrusion or extrusion at T10-T11. Uncertain degree of resultant stenosis but estimated at moderate more so at T8- T9. CT LUMBAR SPINE: No acute fracture. No traumatic malalignment. Mild lumbar levocurvature with the apex at L3-L4. Discogenic arthrosis greatest at L3-L4 more so than L4-L5, L5-S1 and L1-L2. Scattered facet degeneration and disc osteophyte complex formation. Limited assessment of the central canal but without definitive severe narrowing. Osseous neural foraminal stenosis greatest on the left at L5-S1. IMPRESSION: CT CHEST: 1. No acute abnormality seen throughout the chest. 2. Enlarged heart with calcific coronary artery disease. 3. Findings centered at the subpleural aspect of the lungs favored mostly on account of atelectasis with possible mild superimposed fibrosis. An atypical infectious process is felt unlikely given history. CT ABDOMEN/PELVIS: 1. No acute abnormality seen below the diaphragm. 2. Chronic findings to include gallstones and colonic diverticulosis. CT THORACIC SPINE: 1. No acute fracture or traumatic malalignment. CT LUMBAR SPINE: 1. No acute fracture or traumatic malalignment. Electronically signed by: BRANDY GOVEA MD (06/12/2021 11:28 PM) [facility] DICTATED and SIGNED BY: BRANDY GOVEA MD DATE: 06/12/21 [id number] Assessment and Plan Assessmemt and Plan Problems Medical Problems: (1) Altered mental status Status: Acute (2) Need for Tdap vaccination Status: Acute (3) NSTEMI (non-ST elevated myocardial infarction) Status: Acute (4) Traumatic hematoma of scalp Status: Acute Comment Review of Relevant I have reviewed the following items rashad (where applicable) has been applied. Labs Laboratory Tests Test 06/16/21 06:05 Sodium Level 141 mmol/L (136-145) Potassium Level 4.2 mmol/L (3.5-5.1) Chloride Level 105 mmol/L (98-107) Carbon Dioxide Level 26 mmol/L (21-32) Anion Gap 10 (6-14) Blood Urea Nitrogen 19 mg/dL (8-26) Creatinine 1.0 mg/dL (0.7-1.3) Estimated GFR (Cockcroft-Gault) 73.2 Glucose Level 84 mg/dL (70-99) Calcium Level 8.9 mg/dL (8.5-10.1) Creatine Kinase 279 U/L (39-308) Medications Current Medications Dexamethasone Sodium Phosphate (Decadron) 10 mg 1X ONCE IV Last administered on 06/12/21at 23:52; Start 06/12/21 at 23:00; Stop 06/12/21 at 23:01; Status DC Diphenhydramine HCl (Benadryl) 25 mg 1X ONCE IVP Last administered on 06/12/21at 23:52; Start 06/12/21 at 23:00; Stop 06/12/21 at 23:01; Status DC Acetaminophen (Tylenol) 1,000 mg 1X ONCE PO Last administered on 06/12/21at 23:52; Start 06/12/21 at 23:00; Stop 06/12/21 at 23:01; Status DC Iohexol (Omnipaque 300 Mg/ml) 60 ml 1X ONCE IV Last administered on 06/12/21at 23:21; Start 06/12/21 at 23:30; Stop 06/12/21 at 23:31; Status DC Info (CONTRAST GIVEN -- Rx MONITORING) 1 each PRN DAILY PRN MC SEE COMMENTS; Start 06/12/21 at 23:00; Stop 06/14/21 at 22:59; Status DC Diphtheria/ Tetanus/Acell Pertussis (ADACEL TDap SYRINGE) 0.5 ml ONCE ONCE VAX IM Last administered on 06/12/21at 23:51; Start 06/12/21 at 23:30; Stop 06/12/21 at 23:31; Status DC Neomycin/ Polymyxin/ Bacitracin (Triple Antibiotic Ointment) 1 pkt 1X ONCE TP ; Start 06/13/21 at 01:00; Stop 06/13/21 at 01:01; Status DC Hydromorphone HCl (Dilaudid) 1 mg 1X ONCE IVP Last administered on 06/13/21at 01:00; Start 06/13/21 at 01:00; Stop 06/13/21 at 01:01; Status DC Lorazepam (Ativan Inj) 2 mg 1X PRN PRN IVP ANXIETY / AGITATION Last administered on 06/13/21at 12:11; Start 06/13/21 at 09:00 Levetiracetam 500 mg/Dextrose 105 ml @ 420 mls/hr Q12HR IV Last administered on 06/13/21at 20:42; Start 06/13/21 at 09:12; Stop 06/14/21 at 08:52; Status DC Lorazepam (Ativan Inj) 2 mg 1X ONCE IVP ; Start 06/13/21 at 12:30; Stop 06/13/21 at 12:31; Status DC Lacosamide 100 mg/ Dextrose 60 ml @ 120 mls/hr BID IV Last administered on 06/13/21at 21:22; Start 06/13/21 at 14:00; Stop 06/14/21 at 08:52; Status DC Levetiracetam (Keppra) 500 mg BID PO Last administered on 06/17/21at 09:16; Start 06/14/21 at 09:00 Lacosamide (Vimpat) 100 mg BID PO Last administered on 06/17/21at 09:17; Start 06/14/21 at 09:00 Atorvastatin Calcium (Lipitor) 20 mg QHS PO Last administered on 06/14/21at 20:40; Start 06/14/21 at 21:00; Stop 06/15/21 at 14:22; Status DC Docusate Sodium (Colace) 100 mg BID PO Last administered on 06/17/21at 09:16; Start 06/14/21 at 11:00 Levetiracetam (Keppra) 1,250 mg BID PO ; Start 06/14/21 at 21:00; Status UNV Levothyroxine Sodium (Synthroid) 50 mcg DAILY06 PO Last administered on 06/17/21at 04:42; Start 06/14/21 at 11:00 Fish Oil (Fish Oil) 1,000 mg DAILY PO Last administered on 06/17/21at 09:16; Start 06/14/21 at 11:00 Metoprolol Tartrate (Lopressor) 50 mg BID PO Last administered on 06/17/21at 09:16; Start 06/14/21 at 11:00 Multivitamins (Thera M Plus) 1 tab DAILY PO Last administered on 06/17/21at 09:17; Start 06/14/21 at 11:00 Amlodipine Besylate (Norvasc) 5 mg 1X ONCE PO Last administered on 06/14/21at 15:08; Start 06/14/21 at 13:30; Stop 06/14/21 at 13:31; Status DC Amlodipine Besylate (Norvasc) 5 mg DAILY PO Last administered on 06/17/21at 09:16; Start 06/15/21 at 09:00 Aspirin (Ecotrin) 81 mg DAILYWBKFT PO Last administered on 06/17/21at 09:16; Start 06/14/21 at 14:30 Atorvastatin Calcium (Lipitor) 20 mg QHS PO Last administered on 06/16/21at 20:26; Start 06/16/21 at 21:00 Temazepam (Restoril) 15 mg PRN QHS PRN PO INSOMNIA Last administered on 06/16/21at 20:26; Start 06/16/21 at 20:00 Active Scripts Active Reported Synthroid (Levothyroxine Sodium) 50 Mcg Tablet 1 Tab PO DAILY Multivitamin 1 Each Tablet 1 Each PO DAILY Metoprolol Tartrate 100 Mg Tablet 0.5 Tab PO BID Keppra (Levetiracetam) 500 Mg Tablet 2.5 Tab PO BID 30 Days Fish Oil Concentrate Softgel (Docosahexanoic Acid/Epa) 1 Each Capsule 1 Cap PO DAILY 30 Days Eliquis (Apixaban) 5 Mg Tablet 5 Mg PO BID Colace (Docusate Sodium) 100 Mg Capsule 1 Cap PO BID 30 Days Atorvastatin Calcium 40 Mg Tablet 0.5 Tab PO DAILY Vitals/I & O Vital Sign - Last 24 Hours 06/16/21 06/16/21 06/16/21 06/16/21 11:12 15:00 19:23 19:25 Temp 96.2 97.0 98.6 96.2 97.0 98.6 Pulse 69 69 70 Resp 22 20 18 B/P (MAP) 141/83 (102) 168/95 (119) 140/82 (101) Pulse Ox 97 98 94 O2 Delivery Room Air Room Air Room Air Room Air 06/16/21 06/16/21 06/17/21 06/17/21 20:26 22:33 02:39 07:00 Temp 98.4 98.1 97.7 98.4 98.1 97.7 Pulse 70 70 70 62 Resp 18 18 18 B/P (MAP) 140/82 166/95 (118) 157/93 (114) 169/95 (119) Pulse Ox 97 95 98 O2 Delivery Room Air Room Air Room Air 06/17/21 06/17/21 09:16 09:16 Pulse 62 62 B/P (MAP) 169/95 169/95 Intake and Output 06/16/21 06/16/21 06/17/21 15:00 23:00 07:00 Intake Total 300 ml 0 ml Output Total 200 ml 1225 ml 1150 ml Balance -200 ml -925 ml -1150 ml Justicifation of Admission Dx: Justifications for Admission: Justification of Admission Dx: N/A NE KHAN MD Jun 17, 2021 10:49
[2021-06-17 11:00] VITALS: BP 147/89
--- NOTE | 2021-06-17 13:25 | NUR ---
SS following up with discharge planning. SS reviewed pt chart and discussed with pt RN. Pt is currently on room air. PT/OT recommended shelter unit. SS met with pt and discussed discharge planning and contacted pt's brother, Shane, , via phone. Pt and pt's brother agreeable to skilled rehabilitation at [facility], ; fax [phone]. COVID19 test pending for placement. SS phoned and faxed referral to [facility] as requested. SS will continue to follow for discharge planning.
[2021-06-17 15:00] VITALS: BP 174/93
[2021-06-17 19:14] VITALS: BP 172/89
[2021-06-17] MEDS: ATORVASTATIN CALCIUM 20 MG TABLET PO SCH (20:38)
[2021-06-17 22:57] VITALS: BP 182/98
[2021-06-17] MEDS: TEMAZEPAM 15 MG CAPSULE PO PRN (23:45)
[2021-06-18 03:09] VITALS: BP 180/112
[2021-06-18] MEDS: LEVOTHYROXINE 50 MCG TABLET PO SCH (06:00)
[2021-06-18 06:27] VITALS: BP 180/97
[2021-06-18] MEDS: ASPIRIN ENTERIC COATED 81 MG TABLET.DR. PO SCH (10:00)
[2021-06-18] MEDS: MULTIVITAMIN with MINERAL TABLET. PO SCH (10:01)
[2021-06-18] MEDS: DOCUSATE SODIUM 100 MG CAPSULE. PO SCH ×2 (10:01→21:23)
[2021-06-18] MEDS: LACOSAMIDE 50 MG TABLET PO SCH ×2 (10:01→21:23)
[2021-06-18] MEDS: levETIRAcetam 500 MG TABLET PO SCH ×2 (10:01→21:24)
[2021-06-18] MEDS: METOPROLOL TART IMMED RELEASE 50 MG TABLET. PO SCH ×2 (10:02→21:24)
[2021-06-18] MEDS: OMEGA-3 FATTY ACIDS/FISH OIL 1,000 MG CAPSULE. PO SCH (10:02)
--- NOTE | 2021-06-18 10:15 | PDOC ---
PROGRESS NOTES Date of Service: DATE: 06/18/21 TIME: 10:15 Chief Complaint Chief Complaint AMS Nstemi History of Present Illness History of Present Illness 06/16/2021 Pt seen and examined Pt was sitting up comfortably Pt expressed desire to go home however he may need to go to a rehab facility PTOT has been working with him D/W RN Chart reviewed Wound CDIT 06/15/2021 Pt seen and examined Pt was sitting up. He was in NAD D/W RN Chart reviewed 06/14/2021 Pt seen and examined at bedside Pt was sitting up and in NAD Pt has Hx of seizures D/W RN Chart reviewed The patient is a pleasant elderly male who fell. He apparently slipped and fell and hit his head. 911 was called. He does have a history of a seizure disorder as well. While in the ER, he was also noted to have a bump in his troponin to 0.09. I discussed the case with the ER physician. We are admitting the patient with consultation to Neurology and Cardiology. 06/17/2021 Pt seen and examined sitting comfortably needs to go to a rehab facility [facility] planned PTOT has been working with him D/W RN Chart reviewed Wound CDIT covid screen Enlarged heart with calcific coronary artery disease. Epilepsy with prolonged postictal state, alert Right scalp wound okay Continue levetiracetam and lacosamide 06/18/2021 Pt seen and examined sitting comfortably needs to go to a rehab facility [facility] planned PTOT has been working with him D/W RN Chart reviewed Wound CDIT covid screen Enlarged heart with calcific coronary artery disease. Epilepsy with prolonged postictal state, alert Right scalp wound okay Continue levetiracetam and lacosamide D/C PLANNING 33 MIN Vitals Vitals Vital Signs Date Time Temp Pulse Resp B/P (MAP) Pulse Ox O2 Delivery O2 Flow Rate FiO2 06/18/21 10:02 70 180/97 06/18/21 06:27 98.0 18 97 Room Air 98.0 Physical Exam General: Alert, Oriented X3, Cooperative, No acute distress Heart: Regular rate, Normal S1, Other (AFIB/flutter, 2/6 systolic murmur to LLS border) Lungs: Clear Abdomen: Normal bowel sounds, Soft, No tenderness Extremities: No clubbing, No cyanosis, No edema Skin: No rashes, Other (right parietal contusion) Assessment and Plan Assessmemt and Plan Problems Medical Problems: (1) Altered mental status Status: Acute (2) Need for Tdap vaccination Status: Acute (3) NSTEMI (non-ST elevated myocardial infarction) Status: Acute (4) Traumatic hematoma of scalp Status: Acute Comment Review of Relevant I have reviewed the following items rashad (where applicable) has been applied. Medications Current Medications Dexamethasone Sodium Phosphate (Decadron) 10 mg 1X ONCE IV Last administered on 06/12/21at 23:52; Start 06/12/21 at 23:00; Stop 06/12/21 at 23:01; Status DC Diphenhydramine HCl (Benadryl) 25 mg 1X ONCE IVP Last administered on 06/12/21at 23:52; Start 06/12/21 at 23:00; Stop 06/12/21 at 23:01; Status DC Acetaminophen (Tylenol) 1,000 mg 1X ONCE PO Last administered on 06/12/21at 23:52; Start 06/12/21 at 23:00; Stop 06/12/21 at 23:01; Status DC Iohexol (Omnipaque 300 Mg/ml) 60 ml 1X ONCE IV Last administered on 06/12/21at 23:21; Start 06/12/21 at 23:30; Stop 06/12/21 at 23:31; Status DC Info (CONTRAST GIVEN -- Rx MONITORING) 1 each PRN DAILY PRN MC SEE COMMENTS; Start 06/12/21 at 23:00; Stop 06/14/21 at 22:59; Status DC Diphtheria/ Tetanus/Acell Pertussis (ADACEL TDap SYRINGE) 0.5 ml ONCE ONCE VAX IM Last administered on 06/12/21at 23:51; Start 06/12/21 at 23:30; Stop 06/12/21 at 23:31; Status DC Neomycin/ Polymyxin/ Bacitracin (Triple Antibiotic Ointment) 1 pkt 1X ONCE TP ; Start 06/13/21 at 01:00; Stop 06/13/21 at 01:01; Status DC Hydromorphone HCl (Dilaudid) 1 mg 1X ONCE IVP Last administered on 06/13/21at 01:00; Start 06/13/21 at 01:00; Stop 06/13/21 at 01:01; Status DC Lorazepam (Ativan Inj) 2 mg 1X PRN PRN IVP ANXIETY / AGITATION Last admini stered on 06/13/21at 12:11; Start 06/13/21 at 09:00 Levetiracetam 500 mg/Dextrose 105 ml @ 420 mls/hr Q12HR IV Last administered on 06/13/21at 20:42; Start 06/13/21 at 09:12; Stop 06/14/21 at 08:52; Status DC Lorazepam (Ativan Inj) 2 mg 1X ONCE IVP ; Start 06/13/21 at 12:30; Stop 06/13/21 at 12:31; Status DC Lacosamide 100 mg/ Dextrose 60 ml @ 120 mls/hr BID IV Last administered on 06/13/21at 21:22; Start 06/13/21 at 14:00; Stop 06/14/21 at 08:52; Status DC Levetiracetam (Keppra) 500 mg BID PO Last administered on 06/18/21at 10:01; Start 06/14/21 at 09:00 Lacosamide (Vimpat) 100 mg BID PO Last administered on 06/18/21at 10:01; Start 06/14/21 at 09:00 Atorvastatin Calcium (Lipitor) 20 mg QHS PO Last administered on 06/14/21at 20:40; Start 06/14/21 at 21:00; Stop 06/15/21 at 14:22; Status DC Docusate Sodium (Colace) 100 mg BID PO Last administered on 06/18/21at 10:01; Start 06/14/21 at 11:00 Levetiracetam (Keppra) 1,250 mg BID PO ; Start 06/14/21 at 21:00; Status UNV Levothyroxine Sodium (Synthroid) 50 mcg DAILY06 PO Last administered on 06/18/21at 06:00; Start 06/14/21 at 11:00 Fish Oil (Fish Oil) 1,000 mg DAILY PO Last administered on 06/18/21at 10:02; Start 06/14/21 at 11:00 Metoprolol Tartrate (Lopressor) 50 mg BID PO Last administered on 06/18/21at 1 0:02; Start 06/14/21 at 11:00 Multivitamins (Thera M Plus) 1 tab DAILY PO Last administered on 06/18/21at 10:01; Start 06/14/21 at 11:00 Amlodipine Besylate (Norvasc) 5 mg 1X ONCE PO Last administered on 06/14/21at 15:08; Start 06/14/21 at 13:30; Stop 06/14/21 at 13:31; Status DC Amlodipine Besylate (Norvasc) 5 mg DAILY PO Last administered on 06/18/21at 10:01; Start 06/15/21 at 09:00 Aspirin (Ecotrin) 81 mg DAILYWBKFT PO Last administered on 06/18/21at 10:00; Start 06/14/21 at 14:30 Atorvastatin Calcium (Lipitor) 20 mg QHS PO Last administered on 06/17/21at 20:38; Start 06/16/21 at 21:00 Temazepam (Restoril) 15 mg PRN QHS PRN PO INSOMNIA Last administered on 06/17/21at 23:45; Start 06/16/21 at 20:00 Dopamine HCl/ Dextrose 250 ml @ 16.463 mls/ hr CONT PRN IV SEE I/O RECORD; Start 06/17/21 at 23:15; Status Cancel Active Scripts Active Reported Synthroid (Levothyroxine Sodium) 50 Mcg Tablet 1 Tab PO DAILY Multivitamin 1 Each Tablet 1 Each PO DAILY Metoprolol Tartrate 100 Mg Tablet 0.5 Tab PO BID Keppra (Levetiracetam) 500 Mg Tablet 2.5 Tab PO BID 30 Days Fish Oil Concentrate Softgel (Docosahexanoic Acid/Epa) 1 Each Capsule 1 Cap PO DAILY 30 Days Eliquis (Apixaban) 5 Mg Tablet 5 Mg PO BID Colace (Docusate Sodium) 100 Mg Capsule 1 Cap PO BID 30 Days Atorvastatin Calcium 40 Mg Tablet 0.5 Tab PO DAILY Vitals/I & O Vital Sign - Last 24 Hours 06/17/21 06/17/21 06/17/21 06/17/21 11:00 15:00 19:14 20:00 Temp 97.7 98.4 98.5 97.7 98.4 98.5 Pulse 69 73 70 Resp 18 18 18 B/P (MAP) 147/89 (108) 174/93 (120) 172/89 (116) Pulse Ox 98 98 98 O2 Delivery Room Air Room Air Room Air Room Air 06/17/21 06/17/21 06/18/21 06/18/21 20:38 22:57 03:09 06:27 Temp 98.7 99.0 98.0 98.7 99.0 98.0 Pulse 70 70 70 70 Resp 18 18 18 B/P (MAP) 172/89 182/98 (126) 180/112 (134) 180/97 (124) Pulse Ox 98 99 97 O2 Delivery Room Air Room Air Room Air 06/18/21 06/18/21 10:01 10:02 Pulse 124 70 B/P (MAP) 180/97 180/97 Intake and Output 06/17/21 06/17/21 06/18/21 15:00 23:00 07:00 Intake Total 420 ml 420 ml 200 ml Output Total 500 ml 750 ml 500 ml Balance -80 ml -330 ml -300 ml Justicifation of Admission Dx: Justifications for Admission: Justification of Admission Dx: N/A NE KHAN MD Jun 18, 2021 10:15
--- NOTE | 2021-06-18 10:17 | PDOC ---
PROGRESS NOTES Date of Service DATE: 06/18/21 TIME: 10:16 Assessment Problems Medical Problems: (1) Altered mental status Status: Acute (2) Need for Tdap vaccination Status: Acute (3) NSTEMI (non-ST elevated myocardial infarction) Status: Acute (4) Traumatic hematoma of scalp Status: Acute Epilepsy with prolonged postictal state, now bright and alert Right scalp wound okay Plan Continue levetiracetam and lacosamide Note plans for SNU Follow-up with his neurologist, Dr. Ruiz Subjective No complaints Objective Vital Signs Date Time Temp Pulse Resp B/P (MAP) Pulse Ox O2 Delivery O2 Flow Rate FiO2 06/18/21 10:02 70 180/97 06/18/21 06:27 98.0 18 97 Room Air 98.0 Intake and Output 06/18/21 07:00 Intake Total 1040 ml Output Total 1750 ml Balance -710 ml Intake Oral 1040 ml Output Urine Total 1750 ml PHYSICAL EXAM Alert. Oriented to time, place and person. PERRL. EOMI. CN: no focal findings. Muscle tone: normal. Muscle strength: 4/5 DTR: 1+ Plantar reflex: flexor Gait: not examined in bed. Sensory exam: no abnormal findings. No cerebellar signs elicited. Review of Relevant I have reviewed the following items rashad (where applicable) has been applied. Medications Current Medications Dexamethasone Sodium Phosphate (Decadron) 10 mg 1X ONCE IV Last administered on 06/12/21at 23:52; Start 06/12/21 at 23:00; Stop 06/12/21 at 23:01; Status DC Diphenhydramine HCl (Benadryl) 25 mg 1X ONCE IVP Last administered on 06/12/21at 23:52; Start 06/12/21 at 23:00; Stop 06/12/21 at 23:01; Status DC Acetaminophen (Tylenol) 1,000 mg 1X ONCE PO Last administered on 06/12/21at 23:52; Start 06/12/21 at 23:00; Stop 06/12/21 at 23:01; Status DC Iohexol (Omnipaque 300 Mg/ml) 60 ml 1X ONCE IV Last administered on 06/12/21at 23:21; Start 06/12/21 at 23:30; Stop 06/12/21 at 23:31; Status DC Info (CONTRAST GIVEN -- Rx MONITORING) 1 each PRN DAILY PRN MC SEE COMMENTS; Start 06/12/21 at 23:00; Stop 06/14/21 at 22:59; Status DC Diphtheria/ Tetanus/Acell Pertussis (ADACEL TDap SYRINGE) 0.5 ml ONCE ONCE VAX IM Last administered on 06/12/21at 23:51; Start 06/12/21 at 23:30; Stop 06/12/21 at 23:31; Status DC Neomycin/ Polymyxin/ Bacitracin (Triple Antibiotic Ointment) 1 pkt 1X ONCE TP ; Start 06/13/21 at 01:00; Stop 06/13/21 at 01:01; Status DC Hydromorphone HCl (Dilaudid) 1 mg 1X ONCE IVP Last administered on 06/13/21at 01:00; Start 06/13/21 at 01:00; Stop 06/13/21 at 01:01; Status DC Lorazepam (Ativan Inj) 2 mg 1X PRN PRN IVP ANXIETY / AGITATION Last administered on 06/13/21at 12:11; Start 06/13/21 at 09:00 Levetiracetam 500 mg/Dextrose 105 ml @ 420 mls/hr Q12HR IV Last administered on 06/13/21at 20:42; Start 06/13/21 at 09:12; Stop 06/14/21 at 08:52; Status DC Lorazepam (Ativan Inj) 2 mg 1X ONCE IVP ; Start 06/13/21 at 12:30; Stop 06/13/21 at 12:31; Status DC Lacosamide 100 mg/ Dextrose 60 ml @ 120 mls/hr BID IV Last administered on 06/13/21at 21:22; Start 06/13/21 at 14:00; Stop 06/14/21 at 08:52; Status DC Levetiracetam (Keppra) 500 mg BID PO Last administered on 06/18/21at 10:01; Start 06/14/21 at 09:00 Lacosamide (Vimpat) 100 mg BID PO Last administered on 06/18/21at 10:01; Start 06/14/21 at 09:00 Atorvastatin Calcium (Lipitor) 20 mg QHS PO Last administered on 06/14/21at 20:40; Start 06/14/21 at 21:00; Stop 06/15/21 at 14:22; Status DC Docusate Sodium (Colace) 100 mg BID PO Last administered on 06/18/21at 10:01; Start 06/14/21 at 11:00 Levetiracetam (Keppra) 1,250 mg BID PO ; Start 06/14/21 at 21:00; Status UNV Levothyroxine Sodium (Synthroid) 50 mcg DAILY06 PO Last administered on 06/18/21at 06:00; Start 06/14/21 at 11:00 Fish Oil (Fish Oil) 1,000 mg DAILY PO Last administered on 06/18/21 10:02; Start 06/14/21 at 11:00 Metoprolol Tartrate (Lopressor) 50 mg BID PO Last administered on 06/18/21 10:02; Start 06/14/21 at 11:00 Multivitamins (Thera M Plus) 1 tab DAILY PO Last administered on 06/18/21 10:01; Start 06/14/21 at 11:00 Amlodipine Besylate (Norvasc) 5 mg 1X ONCE PO Last administered on 06/14/21at 15:08; Start 06/14/21 at 13:30; Stop 06/14/21 at 13:31; Status DC Amlodipine Besylate (Norvasc) 5 mg DAILY PO Last administered on 06/18/21at 10:01; Start 06/15/21 at 09:00 Aspirin (Ecotrin) 81 mg DAILYWBKFT PO Last administered on 06/18/21at 10:00; Start 06/14/21 at 14:30 Atorvastatin Calcium (Lipitor) 20 mg QHS PO Last administered on 06/17/21at 20:38; Start 06/16/21 at 21:00 Temazepam (Restoril) 15 mg PRN QHS PRN PO INSOMNIA Last administered on 06/17/21at 23:45; Start 06/16/21 at 20:00 Dopamine HCl/ Dextrose 250 ml @ 16.463 mls/ hr CONT PRN IV SEE I/O RECORD; Start 06/17/21 at 23:15; Status Cancel Active Scripts Active Reported Synthroid (Levothyroxine Sodium) 50 Mcg Tablet 1 Tab PO DAILY Multivitamin 1 Each Tablet 1 Each PO DAILY Metoprolol Tartrate 100 Mg Tablet 0.5 Tab PO BID Keppra (Levetiracetam) 500 Mg Tablet 2.5 Tab PO BID 30 Days Fish Oil Concentrate Softgel (Docosahexanoic Acid/Epa) 1 Each Capsule 1 Cap PO DAILY 30 Days Eliquis (Apixaban) 5 Mg Tablet 5 Mg PO BID Colace (Docusate Sodium) 100 Mg Capsule 1 Cap PO BID 30 Days Atorvastatin Calcium 40 Mg Tablet 0.5 Tab PO DAILY Vitals/I & O Vital Sign - Last 24 Hours 06/17/21 06/17/21 06/17/21 06/17/21 11:00 15:00 19:14 20:00 Temp 97.7 98.4 98.5 97.7 98.4 98.5 Pulse 69 73 70 Resp 18 18 18 B/P (MAP) 147/89 (108) 174/93 (120) 172/89 (116) Pulse Ox 98 98 98 O2 Delivery Room Air Room Air Room Air Room Air 06/17/21 06/17/21 06/18/21 06/18/21 20:38 22:57 03:09 06:27 Temp 98.7 99.0 98.0 98.7 99.0 98.0 Pulse 70 70 70 70 Resp 18 18 18 B/P (MAP) 172/89 182/98 (126) 180/112 (134) 180/97 (124) Pulse Ox 98 99 97 O2 Delivery Room Air Room Air Room Air 06/18/21 06/18/21 10:01 10:02 Pulse 124 70 B/P (MAP) 180/97 180/97 Intake and Output 06/17/21 06/17/21 06/18/21 15:00 23:00 07:00 Intake Total 420 ml 420 ml 200 ml Output Total 500 ml 750 ml 500 ml Balance -80 ml -330 ml -300 ml Justicifation of Admission Dx: Justifications for Admission: Justification of Admission Dx: N/A JOSE G HARLEY MD Jun 18, 2021 10:17
[2021-06-18 11:02] VITALS: BP 142/85
--- NOTE | 2021-06-18 12:25 | NUR ---
SS following up with discharge planning. SS reviewed pt chart and discussed with pt RN. Pt is currently on room air. COVID19 negative. PT/OT recommended custodial unit. Pt clinically accepted at [facility], ; fax [phone]. Pt has had both COVID19 vaccinations. [facility] was provided with copy of pt's COVID19 vaccination card. COVID19 negative test result was phoned and faxed to [facility]. Per Lizzie, at [facility] bed will be available tomorrow. Dr. Roca notified. SS will continue to follow for discharge planning.
--- NOTE | 2021-06-18 13:28 | PDOC3 ---
Discharge Summary Date of Admission: Jun 12, 2021 Date of Discharge: Jun 18, 2021 Follow-Up: 1-2 days Admitting Diagnosis comment: Chief Complaint Chief Complaint AMS Nstemi History of Present Illness History of Present Illness 06/16/2021 Pt seen and examined Pt was sitting up comfortably Pt expressed desire to go home however he may need to go to a rehab facility PTOT has been working with him D/W RN Chart reviewed Wound CDIT 06/15/2021 Pt seen and examined Pt was sitting up. He was in NAD D/W RN Chart reviewed 06/14/2021 Pt seen and examined at bedside Pt was sitting up and in NAD Pt has Hx of seizures D/W RN Chart reviewed The patient is a pleasant elderly male who fell. He apparently slipped and fell and hit his head. 911 was called. He does have a history of a seizure disorder as well. While in the ER, he was also noted to have a bump in his troponin to 0.09. I discussed the case with the ER physician. We are admitting the patient with consultation to Neurology and Cardiology. 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, alert Right scalp wound okay Continue levetiracetam and lacosamide D/C PLANNING 33 MIN Vitals Vitals Vital Signs Date Time Temp Pulse Resp B/P (MAP) Pulse Ox O2 Delivery O2 Flow Rate FiO2 06/18/21 10:02 70 180/97 06/18/21 06:27 98.0 18 97 Room Air 98.0 Physical Exam General: Alert, Oriented X3, Cooperative, No acute distress Heart: Regular rate, Normal S1, Other (AFIB/flutter, 2/6 systolic murmur to LLS border) Lungs: Clear Abdomen: Normal bowel sounds, Soft, No tenderness Extremities: No clubbing, No cyanosis, No edema Skin: No rashes, Other (right parietal contusion) Assessment and Plan Assessmemt and Plan Problems Medical Problems: (1) Altered mental status Status: Acute (2) Need for Tdap vaccination Status: Acute (3) NSTEMI (non-ST elevated myocardial infarction) Status: Acute (4) Traumatic hematoma of scalp Status: Acute Comment Review of Relevant I have reviewed the following items rashad (where applicable) has been applied. Medications Current Medications Dexamethasone Sodium Phosphate (Decadron) 10 mg 1X ONCE IV Last administered on 06/12/21at 23:52; Start 06/12/21 at 23:00; Stop 06/12/21 at 23:01; Status DC Diphenhydramine HCl (Benadryl) 25 mg 1X ONCE IVP Last administered on 06/12/21at 23:52; Start 06/12/21 at 23:00; Stop 06/12/21 at 23:01; Status DC Acetaminophen (Tylenol) 1,000 mg 1X ONCE PO Last administered on 06/12/21at 23:52; Start 06/12/21 at 23:00; Stop 06/12/21 at 23:01; Status DC Iohexol (Omnipaque 300 Mg/ml) 60 ml 1X ONCE IV Last administered on 06/12/21at 23:21; Start 06/12/21 at 23:30; Stop 06/12/21 at 23:31; Status DC Info (CONTRAST GIVEN -- Rx MONITORING) 1 each PRN DAILY PRN MC SEE COMMENTS; Start 06/12/21 at 23:00; Stop 06/14/21 at 22:59; Status DC Diphtheria/ Tetanus/Acell Pertussis (ADACEL TDap SYRINGE) 0.5 ml ONCE ONCE VAX IM Last administered on 06/12/21at 23:51; Start 06/12/21 at 23:30; Stop 06/12/21 at 23:31; Status DC Neomycin/ Polymyxin/ Bacitracin (Triple Antibiotic Ointment) 1 pkt 1X ONCE TP ; Start 06/13/21 at 01:00; Stop 06/13/21 at 01:01; Status DC Hydromorphone HCl (Dilaudid) 1 mg 1X ONCE IVP Last administered on 06/13/21at 01:00; Start 06/13/21 at 01:00; Stop 06/13/21 at 01:01; Status DC Lorazepam (Ativan Inj) 2 mg 1X PRN PRN IVP ANXIETY / AGITATION Last administered on 06/13/21at 12:11; Start 06/13/21 at 09:00 Levetiracetam 500 mg/Dextrose 105 ml @ 420 mls/hr Q12HR IV Last administered on 06/13/21at 20:42; Start 06/13/21 at 09:12; Stop 06/14/21 at 08:52; Status DC Lorazepam (Ativan Inj) 2 mg 1X ONCE IVP ; Start 06/13/21 at 12:30; Stop 06/13/21 at 12:31; Status DC Lacosamide 100 mg/ Dextrose 60 ml @ 120 mls/hr BID IV Last administered on 06/13/21at 21:22; Start 06/13/21 at 14:00; Stop 06/14/21 at 08:52; Status DC Levetiracetam (Keppra) 500 mg BID PO Last administered on 06/18/21at 10:01; Start 06/14/21 at 09:00 Lacosamide (Vimpat) 100 mg BID PO Last administered on 06/18/21at 10:01; Start 06/14/21 at 09:00 Atorvastatin Calcium (Lipitor) 20 mg QHS PO Last administered on 06/14/21at 20:40; Start 06/14/21 at 21:00; Stop 06/15/21 at 14:22; Status DC Docusate Sodium (Colace) 100 mg BID PO Last administered on 06/18/21at 10:01; Start 06/14/21 at 11:00 Levetiracetam (Keppra) 1,250 mg BID PO ; Start 06/14/21 at 21:00; Status UNV Levothyroxine Sodium (Synthroid) 50 mcg DAILY06 PO Last administered on 06/18/21at 06:00; Start 06/14/21 at 11:00 Fish Oil (Fish Oil) 1,000 mg DAILY PO Last administered on 06/18/21at 10:02; Start 06/14/21 at 11:00 Metoprolol Tartrate (Lopressor) 50 mg BID PO Last administered on 06/18/21 10:02; Start 06/14/21 at 11:00 Multivitamins (Thera M Plus) 1 tab DAILY PO Last administered on 06/18/21at 10:01; Start 06/14/21 at 11:00 Amlodipine Besylate (Norvasc) 5 mg 1X ONCE PO Last administered on 06/14/21at 15:08; Start 06/14/21 at 13:30; Stop 06/14/21 at 13:31; Status DC Amlodipine Besylate (Norvasc) 5 mg DAILY PO Last administered on 06/18/21at 10:01; Start 06/15/21 at 09:00 Aspirin (Ecotrin) 81 mg DAILYWBKFT PO Last administered on 06/18/21 10:00; Start 06/14/21 at 14:30 Atorvastatin Calcium (Lipitor) 20 mg QHS PO Last administered on 06/17/21at 20:38; Start 06/16/21 at 21:00 Temazepam (Restoril) 15 mg PRN QHS PRN PO INSOMNIA Last administered on 06/17/21at 23:45; Start 06/16/21 at 20:00 Dopamine HCl/ Dextrose 250 ml @ 16.463 mls/ hr CONT PRN IV SEE I/O RECORD; Start 06/17/21 at 23:15; Status Cancel Active Scripts Active Reported Synthroid (Levothyroxine Sodium) 50 Mcg Tablet 1 Tab PO DAILY Multivitamin 1 Each Tablet 1 Each PO DAILY Metoprolol Tartrate 100 Mg Tablet 0.5 Tab PO BID Keppra (Levetiracetam) 500 Mg Tablet 2.5 Tab PO BID 30 Days Fish Oil Concentrate Softgel (Docosahexanoic Acid/Epa) 1 Each Capsule 1 Cap PO DAILY 30 Days Eliquis (Apixaban) 5 Mg Tablet 5 Mg PO BID Colace (Docusate Sodium) 100 Mg Capsule 1 Cap PO BID 30 Days Atorvastatin Calcium 40 Mg Tablet 0.5 Tab PO DAILY Vitals/I & O FINAL DIAGNOSIS Problems Medical Problems: (1) Altered mental status Status: Acute (2) Need for Tdap vaccination Status: Acute (3) NSTEMI (non-ST elevated myocardial infarction) Status: Acute (4) Traumatic hematoma of scalp Status: Acute Brief Hospital Course Mr. Yates is a 75 old [sex] who presented with [ ] CONDITION AT DISCHARGE: Improved Discharge Medications Current Medications Dexamethasone Sodium Phosphate (Decadron) 10 mg 1X ONCE IV Last administered on 06/12/21at 23:52; Start 06/12/21 at 23:00; Stop 06/12/21 at 23:01; Status DC Diphenhydramine HCl (Benadryl) 25 mg 1X ONCE IVP Last administered on 06/12/21at 23:52; Start 06/12/21 at 23:00; Stop 06/12/21 at 23:01; Status DC Acetaminophen (Tylenol) 1,000 mg 1X ONCE PO Last administered on 06/12/21at 23:52; Start 06/12/21 at 23:00; Stop 06/12/21 at 23:01; Status DC Iohexol (Omnipaque 300 Mg/ml) 60 ml 1X ONCE IV Last administered on 06/12/21at 23:21; Start 06/12/21 at 23:30; Stop 06/12/21 at 23:31; Status DC Info (CONTRAST GIVEN -- Rx MONITORING) 1 each PRN DAILY PRN MC SEE COMMENTS; Start 06/12/21 at 23:00; Stop 06/14/21 at 22:59; Status DC Diphtheria/ Tetanus/Acell Pertussis (ADACEL TDap SYRINGE) 0.5 ml ONCE ONCE VAX IM Last administered on 06/12/21at 23:51; Start 06/12/21 at 23:30; Stop 06/12/21 at 23:31; Status DC Neomycin/ Polymyxin/ Bacitracin (Triple Antibiotic Ointment) 1 pkt 1X ONCE TP ; Start 06/13/21 at 01:00; Stop 06/13/21 at 01:01; Status DC Hydromorphone HCl (Dilaudid) 1 mg 1X ONCE IVP Last administered on 06/13/21at 01:00; Start 06/13/21 at 01:00; Stop 06/13/21 at 01:01; Status DC Lorazepam (Ativan Inj) 2 mg 1X PRN PRN IVP ANXIETY / AGITATION Last administered on 06/13/21at 12:11; Start 06/13/21 at 09:00 Levetiracetam 500 mg/Dextrose 105 ml @ 420 mls/hr Q12HR IV Last administered on 06/13/21at 20:42; Start 06/13/21 at 09:12; Stop 06/14/21 at 08:52; Status DC Lorazepam (Ativan Inj) 2 mg 1X ONCE IVP ; Start 06/13/21 at 12:30; Stop 06/13/21 at 12:31; Status DC Lacosamide 100 mg/ Dextrose 60 ml @ 120 mls/hr BID IV Last administered on 06/13/21at 21:22; Start 06/13/21 at 14:00; Stop 06/14/21 at 08:52; Status DC Levetiracetam (Keppra) 500 mg BID PO Last administered on 06/18/21at 10:01; Start 06/14/21 at 09:00 Lacosamide (Vimpat) 100 mg BID PO Last administered on 06/18/21at 10:01; Start 06/14/21 at 09:00 Atorvastatin Calcium (Lipitor) 20 mg QHS PO Last administered on 06/14/21at 20:40; Start 06/14/21 at 21:00; Stop 06/15/21 at 14:22; Status DC Docusate Sodium (Colace) 100 mg BID PO Last administered on 06/18/21at 10:01; Start 06/14/21 at 11:00 Levetiracetam (Keppra) 1,250 mg BID PO ; Start 06/14/21 at 21:00; Status UNV Levothyroxine Sodium (Synthroid) 50 mcg DAILY06 PO Last administered on 06/18/21at 06:00; Start 06/14/21 at 11:00 Fish Oil (Fish Oil) 1,000 mg DAILY PO Last administered on 06/18/21at 10:02; Start 06/14/21 at 11:00 Metoprolol Tartrate (Lopressor) 50 mg BID PO Last administered on 06/18/21at 10:02; Start 06/14/21 at 11:00 Multivitamins (Thera M Plus) 1 tab DAILY PO Last administered on 06/18/21at 10:01; Start 06/14/21 at 11:00 Amlodipine Besylate (Norvasc) 5 mg 1X ONCE PO Last administered on 06/14/21at 15:08; Start 06/14/21 at 13:30; Stop 06/14/21 at 13:31; Status DC Amlodipine Besylate (Norvasc) 5 mg DAILY PO Last administered on 06/18/21at 10:01; Start 06/15/21 at 09:00 Aspirin (Ecotrin) 81 mg DAILYWBKFT PO Last administered on 06/18/21at 10:00; Start 06/14/21 at 14:30 Atorvastatin Calcium (Lipitor) 20 mg QHS PO Last administered on 06/17/21at 20:38; Start 06/16/21 at 21:00 Temazepam (Restoril) 15 mg PRN QHS PRN PO INSOMNIA Last administered on 06/17/21at 23:45; Start 06/16/21 at 20:00 Dopamine HCl/ Dextrose 250 ml @ 16.463 mls/ hr CONT PRN IV SEE I/O RECORD; Start 06/17/21 at 23:15; Status Cancel Active Scripts Active Reported Synthroid (Levothyroxine Sodium) 50 Mcg Tablet 1 Tab PO DAILY Multivitamin 1 Each Tablet 1 Each PO DAILY Metoprolol Tartrate 100 Mg Tablet 0.5 Tab PO BID Keppra (Levetiracetam) 500 Mg Tablet 2.5 Tab PO BID 30 Days Fish Oil Concentrate Softgel (Docosahexanoic Acid/Epa) 1 Each Capsule 1 Cap PO DAILY 30 Days Eliquis (Apixaban) 5 Mg Tablet 5 Mg PO BID Colace (Docusate Sodium) 100 Mg Capsule 1 Cap PO BID 30 Days Atorvastatin Calcium 40 Mg Tablet 0.5 Tab PO DAILY Vital Signs Vital Signs Date Time Temp Pulse Resp B/P (MAP) Pulse Ox O2 Delivery O2 Flow Rate FiO2 06/18/21 11:02 97.6 69 18 142/85 (104) 98 Room Air 97.6 Labs Laboratory Tests Test 06/17/21 23:30 SARS-CoV-2 RNA ([facility]) Negative (Negative) Laboratory Tests Test 06/17/21 23:30 SARS-CoV-2 RNA ([facility]) Negative (Negative) Allergies Allergies Coded Allergies Type Severity Reaction Last Updated Verified No Known Drug Allergies 06/12/21 No Disposition/Orders: Other (D/C TO SNF) Justicifation of Admission Dx: Justifications for Admission: Justification of Admission Dx: N/A NE KHAN MD Jun 18, 2021 13:28
[2021-06-18 15:30] VITALS: BP 130/79
[2021-06-18 19:35] VITALS: BP 164/79
[2021-06-18] MEDS: TEMAZEPAM 15 MG CAPSULE PO PRN (21:23)
[2021-06-18] MEDS: ATORVASTATIN CALCIUM 20 MG TABLET PO SCH (21:24)
[2021-06-18 23:01] VITALS: BP 142/83
[2021-06-19 02:59] VITALS: BP 173/96
[2021-06-19 06:07] VITALS: BP 134/81
[2021-06-19] MEDS: LEVOTHYROXINE 50 MCG TABLET PO SCH (06:46)
[2021-06-19] MEDS: MULTIVITAMIN with MINERAL TABLET. PO SCH (08:16)
[2021-06-19] MEDS: METOPROLOL TART IMMED RELEASE 50 MG TABLET. PO SCH (08:16)
[2021-06-19] MEDS: levETIRAcetam 500 MG TABLET PO SCH (08:16)
[2021-06-19] MEDS: LACOSAMIDE 50 MG TABLET PO SCH (08:16)
[2021-06-19] MEDS: ASPIRIN ENTERIC COATED 81 MG TABLET.DR. PO SCH (08:16)
[2021-06-19] MEDS: OMEGA-3 FATTY ACIDS/FISH OIL 1,000 MG CAPSULE. PO SCH (08:17)
[2021-06-19] MEDS: DOCUSATE SODIUM 100 MG CAPSULE. PO SCH (08:17)
--- NOTE | 2021-06-19 09:35 | PDOC ---
PROGRESS NOTES Date of Service: DATE: 06/19/21 TIME: 09:35 Chief Complaint Chief Complaint AMS Nstemi History of Present Illness History of Present Illness 06/16/2021 Pt seen and examined Pt was sitting up comfortably Pt expressed desire to go home however he may need to go to a rehab facility PTOT has been working with him D/W RN Chart reviewed Wound CDIT 06/15/2021 Pt seen and examined Pt was sitting up. He was in NAD D/W RN Chart reviewed 06/14/2021 Pt seen and examined at bedside Pt was sitting up and in NAD Pt has Hx of seizures D/W RN Chart reviewed The patient is a pleasant elderly male who fell. He apparently slipped and fell and hit his head. 911 was called. He does have a history of a seizure disorder as well. While in the ER, he was also noted to have a bump in his troponin to 0.09. I discussed the case with the ER physician. We are admitting the patient with consultation to Neurology and Cardiology. 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, alert Right scalp wound okay Continue levetiracetam and lacosamide D/C PLANNING 33 MIN Vitals Vitals Vital Signs Date Time Temp Pulse Resp B/P (MAP) Pulse Ox O2 Delivery O2 Flow Rate FiO2 06/19/21 08:16 69 134/81 06/19/21 07:40 Room Air 06/19/21 06:07 98.0 19 99 98.0 Physical Exam General: Alert, Oriented X3, Cooperative, No acute distress Heart: Regular rate, Normal S1, Other (AFIB/flutter, 2/6 systolic murmur to LLS border) Lungs: Clear Abdomen: Normal bowel sounds, Soft, No tenderness Extremities: No clubbing, No cyanosis, No edema Skin: No rashes, Other (right parietal contusion) Assessment and Plan Assessmemt and Plan Problems Medical Problems: (1) Altered mental status Status: Acute (2) Need for Tdap vaccination Status: Acute (3) NSTEMI (non-ST elevated myocardial infarction) Status: Acute (4) Traumatic hematoma of scalp Status: Acute Comment Review of Relevant I have reviewed the following items rashad (where applicable) has been applied. Labs Laboratory Tests Test 06/17/21 23:30 SARS-CoV-2 RNA ([facility]) Negative (Negative) Medications Current Medications Dexamethasone Sodium Phosphate (Decadron) 10 mg 1X ONCE IV Last administered on 06/12/21at 23:52; Start 06/12/21 at 23:00; Stop 06/12/21 at 23:01; Status DC Diphenhydramine HCl (Benadryl) 25 mg 1X ONCE IVP Last administered on 06/12/21at 23:52; Start 06/12/21 at 23:00; Stop 06/12/21 at 23:01; Status DC Acetaminophen (Tylenol) 1,000 mg 1X ONCE PO Last administered on 06/12/21at 23:52; Start 06/12/21 at 23:00; Stop 06/12/21 at 23:01; Status DC Iohexol (Omnipaque 300 Mg/ml) 60 ml 1X ONCE IV Last administered on 06/12/21at 23:21; Start 06/12/21 at 23:30; Stop 06/12/21 at 23:31; Status DC Info (CONTRAST GIVEN -- Rx MONITORING) 1 each PRN DAILY PRN MC SEE COMMENTS; Start 06/12/21 at 23:00; Stop 06/14/21 at 22:59; Status DC Diphtheria/ Tetanus/Acell Pertussis (ADACEL TDap SYRINGE) 0.5 ml ONCE ONCE VAX IM Last administered on 06/12/21at 23:51; Start 06/12/21 at 23:30; Stop 06/12/21 at 23:31; Status DC Neomycin/ Polymyxin/ Bacitracin (Triple Antibiotic Ointment) 1 pkt 1X ONCE TP ; Start 06/13/21 at 01:00; Stop 06/13/21 at 01:01; Status DC Hydromorphone HCl (Dilaudid) 1 mg 1X ONCE IVP Last administered on 06/13/21at 01:00; Start 06/13/21 at 01:00; Stop 06/13/21 at 01:01; Status DC Lorazepam (Ativan Inj) 2 mg 1X PRN PRN IVP ANXIETY / AGITATION Last administered on 06/13/21at 12:11; Start 06/13/21 at 09:00 Levetiracetam 500 mg/Dextrose 105 ml @ 420 mls/hr Q12HR IV Last administered on 06/13/21at 20:42; Start 06/13/21 at 09:12; Stop 06/14/21 at 08:52; Status DC Lorazepam (Ativan Inj) 2 mg 1X ONCE IVP ; Start 06/13/21 at 12:30; Stop 06/13/21 at 12:31; Status DC Lacosamide 100 mg/ Dextrose 60 ml @ 120 mls/hr BID IV Last administered on 06/13/21at 21:22; Start 06/13/21 at 14:00; Stop 06/14/21 at 08:52; Status DC Levetiracetam (Keppra) 500 mg BID PO Last administered on 06/19/21at 08:16; Start 06/14/21 at 09:00 Lacosamide (Vimpat) 100 mg BID PO Last administered on 06/19/21at 08:16; Start 06/14/21 at 09:00 Atorvastatin Calcium (Lipitor) 20 mg QHS PO Last administered on 06/14/21at 20:40; Start 06/14/21 at 21:00; Stop 06/15/21 at 14:22; Status DC Docusate Sodium (Colace) 100 mg BID PO Last administered on 06/19/21at 08:17; Start 06/14/21 at 11:00 Levetiracetam (Keppra) 1,250 mg BID PO ; Start 06/14/21 at 21:00; Status UNV Levothyroxine Sodium (Synthroid) 50 mcg DAILY06 PO Last administered on 06/19/21at 06:46; Start 06/14/21 at 11:00 Fish Oil (Fish Oil) 1,000 mg DAILY PO Last administered on 06/19/21at 08:17; Start 06/14/21 at 11:00 Metoprolol Tartrate (Lopressor) 50 mg BID PO Last administered on 06/19/21at 08:16; Start 06/14/21 at 11:00 Multivitamins (Thera M Plus) 1 tab DAILY PO Last administered on 06/19/21 08:16; Start 06/14/21 at 11:00 Amlodipine Besylate (Norvasc) 5 mg 1X ONCE PO Last administered on 06/14/21at 15:08; Start 06/14/21 at 13:30; Stop 06/14/21 at 13:31; Status DC Amlodipine Besylate (Norvasc) 5 mg DAILY PO Last administered on 06/19/21at 08:16; Start 06/15/21 at 09:00 Aspirin (Ecotrin) 81 mg DAILYWBKFT PO Last administered on 06/19/21at 08:16; Start 06/14/21 at 14:30 Atorvastatin Calcium (Lipitor) 20 mg QHS PO Last administered on 06/18/21at 21:24; Start 06/16/21 at 21:00 Temazepam (Restoril) 15 mg PRN QHS PRN PO INSOMNIA Last administered on 06/18/21at 21:23; Start 06/16/21 at 20:00 Dopamine HCl/ Dextrose 250 ml @ 16.463 mls/ hr CONT PRN IV SEE I/O RECORD; S tart 06/17/21 at 23:15; Status Cancel Active Scripts Active Reported Synthroid (Levothyroxine Sodium) 50 Mcg Tablet 1 Tab PO DAILY Multivitamin 1 Each Tablet 1 Each PO DAILY Metoprolol Tartrate 100 Mg Tablet 0.5 Tab PO BID Keppra (Levetiracetam) 500 Mg Tablet 2.5 Tab PO BID 30 Days Fish Oil Concentrate Softgel (Docosahexanoic Acid/Epa) 1 Each Capsule 1 Cap PO DAILY 30 Days Eliquis (Apixaban) 5 Mg Tablet 5 Mg PO BID Colace (Docusate Sodium) 100 Mg Capsule 1 Cap PO BID 30 Days Atorvastatin Calcium 40 Mg Tablet 0.5 Tab PO DAILY Vitals/I & O Vital Sign - Last 24 Hours 06/18/21 06/18/21 06/18/21 06/18/21 10:01 10:02 11:02 15:30 Temp 97.6 97.7 97.6 97.7 Pulse 124 70 69 69 Resp 18 18 B/P (MAP) 180/97 180/97 142/85 (104) 130/79 (96) Pulse Ox 98 98 O2 Delivery Room Air Room Air 06/18/21 06/18/21 06/18/21 06/18/21 19:35 20:00 21:24 23:01 Temp 97.8 97.9 97.8 97.9 Pulse 69 69 69 Resp 19 19 B/P (MAP) 164/79 (107) 164/79 142/83 (102) Pulse Ox 98 97 O2 Delivery Room Air Room Air Room Air 06/19/21 06/19/21 06/19/21 06/19/21 02:59 06:07 07:40 08:16 Temp 97.9 98.0 97.9 98.0 Pulse 69 69 69 Resp 19 19 B/P (MAP) 173/96 (121) 134/81 (98) 134/81 Pulse Ox 98 99 O2 Delivery Room Air Room Air Room Air 06/19/21 08:16 Pulse 69 B/P (MAP) 134/81 Intake and Output 06/18/21 06/18/21 06/19/21 15:00 23:00 07:00 Intake Total 420 ml 300 ml 200 ml Output Total 300 ml 510 ml 620 ml Balance 120 ml -210 ml -420 ml Justicifation of Admission Dx: Justifications for Admission: Justification of Admission Dx: N/A NE KHAN MD Jun 19, 2021 09:35
[2021-06-19] MEDS ORDERED: LEVE500T56 PO (09:39)
[2021-06-19] MEDS ORDERED: AMLO-186 PO (09:39)
[2021-06-19] MEDS ORDERED: ASPI-886 PO (09:39)
[2021-06-19] MEDS ORDERED: LACO50TA PO (09:39)
--- NOTE | 2021-06-19 09:41 | SNU/HH DC ---
DISCHARGE ORDERS DISCHARGE INFORMATION: DISCHARGE DATE: Jun 19, 2021 FINAL DIAGNOSIS Problems Medical Problems: (1) Altered mental status Status: Acute (2) Need for Tdap vaccination Status: Acute (3) NSTEMI (non-ST elevated myocardial infarction) Status: Acute (4) Traumatic hematoma of scalp Status: Acute CONDITION ON DISCHARGE: Stable CODE STATUS: Code Status: Full GROUP HOME: SNF STAY <30 DAYS: Yes HOSPICE: HOSPICE: No HOSPICE EVAL & TREAT: No LTAC: ADMIT TO LTAC: No POST DISCHARGE ORDERS: ACTIVITY ORDERS: Activity as tolerated, Progressive ambulation DIET AFTER DISCHARGE: Cardiac CHECKS AFTER DISCHARGE: CHECKS AFTER DISCHARGE: Check blood press - daily FOLLOW-UP: PHYSICIAN FOLLOW-UP: SNF PCP TODAY,, NEUROLOGY 2 WEEKS TREATMENT/EQUIPMENT ORDERS: ADAPTIVE EQUIPMENT NEEDED: Front wheeled walker Physical Therapy For: Evalulation/Treatment Occupational Therapy For: Evaluation/Treatment Speech Language Pathology For: Evaluation/Treatment DISCHARGE MEDICATIONS: Home Meds Active Scripts Levetiracetam (KEPPRA) 500 Mg Tablet, 500 MG PO BID for SEIZURES for 30 Days, #60 TAB Prov:NE KHAN MD 06/19/21 Lacosamide (VIMPAT) 50 Mg Tablet, 100 MG PO BID for SEIZURE for 30 Days, #120 TAB Prov:NE KHAN MD 06/19/21 Aspirin (ASPIRIN EC) 81 Mg Tablet.dr, 81 MG PO DAILYWBKFT for HEART HEALTH for 30 Days, #30 TAB.SR Prov:NE KHAN MD 06/19/21 Amlodipine Besylate (AMLODIPINE BESYLATE) 5 Mg Tablet, 5 MG PO DAILY for BLOOD PRESSURE for 30 Days, #30 TAB Prov:NE KHAN MD 06/19/21 Reported Medications Levothyroxine Sodium (SYNTHROID) 50 Mcg Tablet, 1 TAB PO DAILY for hypothyroidism, #30 TAB 5 Refills 06/13/21 Multivitamin (Multivitamin) 1 Each Tablet, 1 EACH PO DAILY for mineral, TAB 06/13/21 Metoprolol Tartrate (METOPROLOL TARTRATE) 100 Mg Tablet, 0.5 TAB PO BID for hypertension, #60 TAB 5 Refills 06/13/21 Docosahexanoic Acid/Epa (FISH OIL CONCENTRATE SOFTGEL) 1 Each Capsule, 1 CAP PO DAILY for vitamins for 30 Days, #30 CAP 0 Refills 06/13/21 Docusate Sodium (COLACE) 100 Mg Capsule, 1 CAP PO BID for constipation for 30 Days, #60 CAP 0 Refills 06/13/21 Atorvastatin Calcium (ATORVASTATIN CALCIUM) 40 Mg Tablet, 0.5 TAB PO DAILY for hyperlipidemia, #30 TAB 5 Refills 06/13/21 Discontinued Reported Medications Levetiracetam (KEPPRA) 500 Mg Tablet, 2.5 TAB PO BID for Seizures for 30 Days, #150 TAB 0 Refills 06/13/21 Apixaban (ELIQUIS) 5 Mg Tablet, 5 MG PO BID for DVT prevention, TAB 06/13/21 NE KHAN MD Jun 19, 2021 09:41
--- NOTE | 2021-06-19 10:31 | NUR ---
SS following up with discharge planning. SS reviewed pt chart and discussed with pt RN. Pt is currently on room air. COVID19 negative. PT/OT recommended correction unit. Pt accepted at [facility], ; fax [phone]. Bed available. Discharge orders received and phoned and faxed to [facility]. Pt will discharge today and go to [facility]. [facility] to provide transportation. Pt, pt's RN, and pt's brother, Shane, , notified.
[2021-06-19 11:00] VITALS: BP 143/70
--- NOTE | 2021-06-19 11:32 | PDOC ---
PROGRESS NOTES Date of Service DATE: 06/19/21 TIME: 11:31 Assessment Problems Medical Problems: (1) Altered mental status Status: Acute (2) Need for Tdap vaccination Status: Acute (3) NSTEMI (non-ST elevated myocardial infarction) Status: Acute (4) Traumatic hematoma of scalp Status: Acute Epilepsy with prolonged postictal state, now bright and alert Right scalp wound okay Plan Continue levetiracetam and lacosamide Note plans for SNU Follow-up with his neurologist, Dr. Ruiz Subjective No complaints Objective Vital Signs Date Time Temp Pulse Resp B/P (MAP) Pulse Ox O2 Delivery O2 Flow Rate FiO2 06/19/21 08:16 69 134/81 06/19/21 07:40 Room Air 06/19/21 06:07 98.0 19 99 98.0 Intake and Output 06/19/21 07:00 Intake Total 920 ml Output Total 1430 ml Balance -510 ml Intake Oral 920 ml Output Urine Total 1430 ml PHYSICAL EXAM Alert. Oriented to time, place and person. PERRL. EOMI. CN: no focal findings. Muscle tone: normal. Muscle strength: 4/5 DTR: 1+ Plantar reflex: flexor Gait: not examined in bed. Sensory exam: no abnormal findings. No cerebellar signs elicited. Review of Relevant I have reviewed the following items rashad (where applicable) has been applied. Labs Laboratory Tests Test 06/17/21 23:30 SARS-CoV-2 RNA ([facility]) Negative (Negative) Medications Current Medications Dexamethasone Sodium Phosphate (Decadron) 10 mg 1X ONCE IV Last administered on 06/12/21at 23:52; Start 06/12/21 at 23:00; Stop 06/12/21 at 23:01; Status DC Diphenhydramine HCl (Benadryl) 25 mg 1X ONCE IVP Last administered on at 23:52; Start 06/12/21 at 23:00; Stop 06/12/21 at 23:01; Status DC Acetaminophen (Tylenol) 1,000 mg 1X ONCE PO Last administered on 06/12/21at 23:52; Start 06/12/21 at 23:00; Stop 06/12/21 at 23:01; Status DC Iohexol (Omnipaque 300 Mg/ml) 60 ml 1X ONCE IV Last administered on 06/12/21at 23:21; Start 06/12/21 at 23:30; Stop 06/12/21 at 23:31; Status DC Info (CONTRAST GIVEN -- Rx MONITORING) 1 each PRN DAILY PRN MC SEE COMMENTS; Start 06/12/21 at 23:00; Stop 06/14/21 at 22:59; Status DC Diphtheria/ Tetanus/Acell Pertussis (ADACEL TDap SYRINGE) 0.5 ml ONCE ONCE VAX IM Last administered on 06/12/21at 23:51; Start 06/12/21 at 23:30; Stop 06/12/21 at 23:31; Status DC Neomycin/ Polymyxin/ Bacitracin (Triple Antibiotic Ointment) 1 pkt 1X ONCE TP ; Start 06/13/21 at 01:00; Stop 06/13/21 at 01:01; Status DC Hydromorphone HCl (Dilaudid) 1 mg 1X ONCE IVP Last administered on 06/13/21at 01:00; Start 06/13/21 at 01:00; Stop 06/13/21 at 01:01; Status DC Lorazepam (Ativan Inj) 2 mg 1X PRN PRN IVP ANXIETY / AGITATION Last administered on 06/13/21at 12:11; Start 06/13/21 at 09:00 Levetiracetam 500 mg/Dextrose 105 ml @ 420 mls/hr Q12HR IV Last administered on 06/13/21at 20:42; Start 06/13/21 at 09:12; Stop 06/14/21 at 08:52; Status DC Lorazepam (Ativan Inj) 2 mg 1X ONCE IVP ; Start 06/13/21 at 12:30; Stop 06/13/21 at 12:31; Status DC Lacosamide 100 mg/ Dextrose 60 ml @ 120 mls/hr BID IV Last administered on 06/13/21at 21:22; Start 06/13/21 at 14:00; Stop 06/14/21 at 08:52; Status DC Levetiracetam (Keppra) 500 mg BID PO Last administered on 06/19/21at 08:16; Start 06/14/21 at 09:00 Lacosamide (Vimpat) 100 mg BID PO Last administered on 06/19/21at 08:16; Start 06/14/21 at 09:00 Atorvastatin Calcium (Lipitor) 20 mg QHS PO Last administered on 06/14/21at 20:40; Start 06/14/21 at 21:00; Stop 06/15/21 at 14:22; Status DC Docusate Sodium (Colace) 100 mg BID PO Last administered on 06/19/21at 08:17; Start 06/14/21 at 11:00 Levetiracetam (Keppra) 1,250 mg BID PO ; Start 06/14/21 at 21:00; Status UNV Levothyroxine Sodium (Synthroid) 50 mcg DAILY06 PO Last administered on 06/19/21at 06:46; Start 06/14/21 at 11:00 Fish Oil (Fish Oil) 1,000 mg DAILY PO Last administered on 06/19/21at 08:17; Start 06/14/21 at 11:00 Metoprolol Tartrate (Lopressor) 50 mg BID PO Last administered on 06/19/21at 08:16; Start 06/14/21 at 11:00 Multivitamins (Thera M Plus) 1 tab DAILY PO Last administered on 06/19/21at 08 :16; Start 06/14/21 at 11:00 Amlodipine Besylate (Norvasc) 5 mg 1X ONCE PO Last administered on 06/14/21at 15:08; Start 06/14/21 at 13:30; Stop 06/14/21 at 13:31; Status DC Amlodipine Besylate (Norvasc) 5 mg DAILY PO Last administered on 06/19/21at 08:16; Start 06/15/21 at 09:00 Aspirin (Ecotrin) 81 mg DAILYWBKFT PO Last administered on 06/19/21at 08:16; Start 06/14/21 at 14:30 Atorvastatin Calcium (Lipitor) 20 mg QHS PO Last administered on 06/18/21at 21:24; Start 06/16/21 at 21:00 Temazepam (Restoril) 15 mg PRN QHS PRN PO INSOMNIA Last administered on 06/18/21at 21:23; Start 06/16/21 at 20:00 Dopamine HCl/ Dextrose 250 ml @ 16.463 mls/ hr CONT PRN IV SEE I/O RECORD; Start 06/17/21 at 23:15; Status Cancel Active Scripts Active Keppra (Levetiracetam) 500 Mg Tablet 500 Mg PO BID 30 Days Vimpat (Lacosamide) 50 Mg Tablet 100 Mg PO BID 30 Days Aspirin Ec (Aspirin) 81 Mg Tablet. 81 Mg PO DAILYWBKFT 30 Days Amlodipine Besylate 5 Mg Tablet 5 Mg PO DAILY 30 Days Reported Synthroid (Levothyroxine Sodium) 50 Mcg Tablet 1 Tab PO DAILY Multivitamin 1 Each Tablet 1 Each PO DAILY Metoprolol Tartrate 100 Mg Tablet 0.5 Tab PO BID Fish Oil Concentrate Softgel (Docosahexanoic Acid/Epa) 1 Each Capsule 1 Cap PO DAILY 30 Days Colace (Docusate Sodium) 100 Mg Capsule 1 Cap PO BID 30 Days Atorvastatin Calcium 40 Mg Tablet 0.5 Tab PO DAILY Vitals/I & O Vital Sign - Last 24 Hours 06/18/21 06/18/21 06/18/21 06/18/21 15:30 19:35 20:00 21:24 Temp 97.7 97.8 97.7 97.8 Pulse 69 69 69 Resp 18 19 B/P (MAP) 130/79 (96) 164/79 (107) 164/79 Pulse Ox 98 98 O2 Delivery Room Air Room Air Room Air 06/18/21 06/19/21 06/19/21 06/19/21 23:01 02:59 06:07 07:40 Temp 97.9 97.9 98.0 97.9 97.9 98.0 Pulse 69 69 69 Resp 19 19 19 B/P (MAP) 142/83 (102) 173/96 (121) 134/81 (98) Pulse Ox 97 98 99 O2 Delivery Room Air Room Air Room Air Room Air 06/19/21 06/19/21 08:16 08:16 Pulse 69 69 B/P (MAP) 134/81 134/81 Intake and Output 06/18/21 06/18/21 06/19/21 15:00 23:00 07:00 Intake Total 420 ml 300 ml 200 ml Output Total 300 ml 510 ml 620 ml Balance 120 ml -210 ml -420 ml Justicifation of Admission Dx: Justifications for Admission: Justification of Admission Dx: N/A JOSE G HARLEY MD Jun 19, 2021 11:32
--- NOTE | 2021-06-19 13:54 | NUR ---
Discharge Note: [facility] Discharge instructions and discharge home medications reviewed with Other facility and a copy given. All questions have been answered and understanding verbalized. The following instructions and handouts were given: DOMINIQUE Cuenca. Meds, follow up, care of stitches, diet, update of patient history and care during hospital stay. Discontinued lines and drains: IV removed, no lines present at discharge. Patient discharged to [facility] and transported by wheelchair transportation.
== END 2021-06-19 12:15 | DRG 70 ==
LOC: ER 21:39 → 6 SOUTH 23:07
PROVIDERS: ADMIT Internal Medicine; ATTEND Internal Medicine
DX: G93.41 Metabolic encephalopathy (principal); I21.4 Non-ST elevation (NSTEMI) myocardial infarction; I50.43 Acute on chronic combined systolic (congestive) and diastolic (congestive) heart failure; J98.11 Atelectasis; I48.92 Unspecified atrial flutter; M62.82 Rhabdomyolysis; S00.03XA Contusion of scalp, initial encounter; G40.909 Epilepsy, unspecified, not intractable, without status epilepticus; Z20.822 Contact with and (suspected) exposure to COVID-19; M19.90 Unspecified osteoarthritis, unspecified site; E03.9 Hypothyroidism, unspecified; I11.0 Hypertensive heart disease with heart failure; I50.9 Heart failure, unspecified; I48.91 Unspecified atrial fibrillation; E78.5 Hyperlipidemia, unspecified; I25.10 Atherosclerotic heart disease of native coronary artery without angina pectoris; W18.2XXA Fall in (into) shower or empty bathtub, initial encounter; Y93.E1 Activity, personal bathing and showering; Y92.002 Bathroom of unspecified non-institutional (private) residence as the place of occurrence of the external cause; Y99.8 Other external cause status; Z79.899 Other long term (current) drug therapy; Z95.0 Presence of cardiac pacemaker; Z91.19 Patient's noncompliance with other medical treatment and regimen; Z83.3 Family history of diabetes mellitus
CPT/HCPCS: 12002; 36415; 70450; 70486; 71260; 72125; 74177; 80048; 80053; 80307; 81001; 82550; 83735; 83880; 84484; 85025; 85610; 85730; 90471; 90715; 93005; 96374; 96375; C9254; J1100; J1170; J1200; J1953; J2060; J7060; Q9967; U0003; U0005; 97110-GP; 97116-GP; 99285-25